=== PATIENT | female | born 1970 | race Hispanic/Latino ===

== ENCOUNTER → 2017-11-30 | Outpatient (REF) | payer BC ==
[2017-11-30 18:06] LABS: APPEARANCE, URINE CLOUDY (CLEAR); BACTERIA, URINE AUTO 2+ (NEGATIVE); BILIRUBIN, URINE AUTO NEGATIVE (NEGATIVE); BLOOD, URINE BLOOD 3+ (NEGATIVE); COLOR, URINE RED (YELLOW); GLUCOSE, URINE (UA) AUTO NEGATIVE (NEGATIVE); KETONE, URINE AUTO NEGATIVE (NEGATIVE); LEUKOCYTE ESTERASE, URINE AUTO 3+ (NEGATIVE); MUCUS, URINE SMALL (NEGATIVE); NITRITE, URINE AUTO NEGATIVE (NEGATIVE); PROTEIN, URINE AUTO 2+ mg/dL (NEGATIVE); RBC, URINE AUTO 132 /HPF (0-3); SPECIFIC GRAVITY URINE AUTO 1.002 (1.002-1.035); SQUAMOUS EPITHELIAL CELL UR AU 1 /HPF (0-6); UROBILINOGEN, URINE AUTO 0.2 mg/dL (0.0-2.0); WBC, URINE AUTO TNTC /HPF (0-3)
== END ==
LOC: M LAB REF 17:23
DX: N39.0 Urinary tract infection, site not specified (principal)
CPT/HCPCS: 81001

== ENCOUNTER 2018-07-05 14:03 | Emergency (ER) | payer OTHER, BC ==
[2018-07-05] MEDS: METHOCARBAMOL 750 MG TAB PO (16:30)
[2018-07-05] MEDS: IBUPROFEN 600 MG TAB PO (16:31)
== END 2018-07-05 19:35 | disposition home or self-care (01) ==
LOC: M ED 14:03
DX: S20.219A Contusion of unspecified front wall of thorax, initial encounter (principal); S60.211A Contusion of right wrist, initial encounter; S60.032A Contusion of left middle finger without damage to nail, initial encounter; V43.52XA Car driver injured in collision with other type car in traffic accident, initial encounter; Y92.9 Unspecified place or not applicable; Y93.9 Activity, unspecified; Y99.9 Unspecified external cause status; M47.812 Spondylosis without myelopathy or radiculopathy, cervical region; M12.88 Other specific arthropathies, not elsewhere classified, other specified site
CPT/HCPCS: 71046

== ENCOUNTER → 2019-02-25 | Outpatient (REF) | payer OTHER, BC ==
[~2019-02-25] MED LIST: FERR325T3 PO; NAPR-837 PO; ROBA500T PO
== END ==
LOC: M SFHCPLAZ 20:20
PROVIDERS: ATTEND Nurse Practitioner Family
DX: R87.615 Unsatisfactory cytologic smear of cervix (principal)

== ENCOUNTER → 2019-02-28 | Outpatient (CLI) | payer BC ==
[2019-02-28 20:09] LABS: BASO % 0.5 % (0.0-1.0); EOS # 0.3 10^3/uL (0.0-0.50); EOS % 3.7 % (0.0-3.0); HEMATOCRIT 25.8 % (36.0-47.0); LYMPH # 3.2 10^3/uL (1.5-4.5); LYMPH % 39.9 % (24.0-44.0); MEAN CORPUSCULAR HEMOGLOBIN 16.1 pg (27.0-33.0); MEAN CORPUSCULAR HGB CONC 26.7 g/dl (32.0-36.5); MEAN CORPUSCULAR VOLUME 60.1 fl (80.0-96.0); MONO # 0.5 10^3/uL (0.0-0.8); MONO % 5.7 % (0.0-5.0); NEUTROPHILS # 3.9 10^3/uL (1.8-7.7); NEUTROPHILS % 49.8 % (36.0-66.0); PLATELET COUNT, AUTOMATED 507 10^3/uL (150-450); RED BLOOD COUNT 4.29 10^6/uL (4.00-5.40); WHITE BLOOD COUNT 7.9 10^3/uL (4.0-10.0)
[2019-02-28 20:19] LABS: HEMOGLOBIN 6.9 g/dl (12.0-15.5)
[2019-02-28 20:32] LABS: ALBUMIN 3.3 GM/DL (3.2-5.2); ALT/SGPT 20 U/L (12-78); BILIRUBIN,TOTAL 0.2 MG/DL (0.2-1.0); BLOOD UREA NITROGEN 8 MG/DL (7-18); CALCIUM LEVEL 8.3 MG/DL (8.5-10.1); CARBON DIOXIDE LEVEL 28 MEQ/L (21-32); CHLORIDE LEVEL 105 MEQ/L (98-107); CHOLESTEROL LEVEL 151 MG/DL (<200); CHOLESTEROL RISK RATIO 3.871 (<5); CREATININE FOR GFR 0.58 MG/DL (0.55-1.30); FREE T4 1.07 NG/DL (0.76-1.46); GLOMERULAR FILTRATION RATE > 60.0 (>58); GLUCOSE, FASTING 95 MG/DL (70-100); HDL CHOLESTEROL 39 MG/DL (>40); LDL CHOLESTEROL 78 MG/DL (<100); NON-HDL-C 112 MG/DL; POTASSIUM SERUM 4.2 MEQ/L (3.5-5.1); SODIUM LEVEL 138 MEQ/L (136-145); TOTAL PROTEIN 7.7 GM/DL (6.4-8.2); TRIGLYCERIDES LEVEL 169 MG/DL (<150)
[2019-02-28 20:47] LABS: HEMOGLOBIN A1c 5.5 %
[2019-03-03 08:21] LABS: H PYLORI QUALITATIVE IgG DETECTED (NEGATIVE)
== END ==
LOC: M WUC 16:23
PROVIDERS: ATTEND Nurse Practitioner Family
DX: K21.9 Gastro-esophageal reflux disease without esophagitis (principal); E55.9 Vitamin D deficiency, unspecified; Z13.228 Encounter for screening for other metabolic disorders

== ENCOUNTER 2019-03-04 11:05 | Inpatient (IN) | payer BC ==
[~2019-03-04] VITALS: Ht 160 cm; Wt 90.4 kg
[~2019-03-04 11:05] MED LIST changes: -FERR325T3 PO
[2019-03-04] MEDS ORDERED: NS 1,000 ML IV SCH (11:12)
[2019-03-04 12:03] VITALS: BP 124/70
[2019-03-04 12:33] LABS: INR 0.99; PROTHROMBIN TIME 13.2 SECONDS (12.1-14.4)
[2019-03-04 12:34] LABS: PARTIAL THROMBOPLASTIN TIME 26.8 SECONDS (25.4-37.6)
[2019-03-04 12:35] LABS: HEMATOCRIT 27.5 % (36.0-47.0); HEMOGLOBIN 7.5 g/dl (12.0-15.5); MEAN CORPUSCULAR HEMOGLOBIN 16.4 pg (27.0-33.0); MEAN CORPUSCULAR HGB CONC 27.3 g/dl (32.0-36.5); MEAN CORPUSCULAR VOLUME 60.2 fl (80.0-96.0); PLATELET COUNT, AUTOMATED 583 10^3/uL (150-450); RED BLOOD COUNT 4.57 10^6/uL (4.00-5.40); WHITE BLOOD COUNT 7.9 10^3/uL (4.0-10.0)
[2019-03-04 14:00] VITALS: BP 104/69
[2019-03-04] MEDS ORDERED: ACETAMINOPHEN 500 MG TAB PO PRN (18:15)
[2019-03-04 22:00] VITALS: BP 103/62
[2019-03-05 06:00] VITALS: BP 127/70
[2019-03-05 06:39] LABS: BASO # 0.1 10^3/uL (0.0-0.2); EOS # 0.3 10^3/uL (0.0-0.50); EOS % 3.6 % (0.0-3.0); HEMATOCRIT 34.1 % (36.0-47.0); LYMPH # 3.3 10^3/uL (1.5-4.5); LYMPH % 45.3 % (24.0-44.0); MEAN CORPUSCULAR HEMOGLOBIN 19.2 pg (27.0-33.0); MEAN CORPUSCULAR HGB CONC 28.7 g/dl (32.0-36.5); MEAN CORPUSCULAR VOLUME 66.7 fl (80.0-96.0); MONO # 0.5 10^3/uL (0.0-0.8); MONO % 6.3 % (0.0-5.0); NEUTROPHILS # 3.2 10^3/uL (1.8-7.7); NEUTROPHILS % 43.1 % (36.0-66.0); PLATELET COUNT, AUTOMATED 519 10^3/uL (150-450); RED BLOOD COUNT 5.11 10^6/uL (4.00-5.40); WHITE BLOOD COUNT 7.3 10^3/uL (4.0-10.0)
[2019-03-05 06:40] LABS: HEMOGLOBIN 9.8 g/dl (12.0-15.5)
[2019-03-05] MEDS ORDERED: FERR325T3 PO (07:56)
--- NOTE | 2019-03-05 08:35 | DSES ---
DATE OF ADMISSION: 03/04/2019 DATE OF DISCHARGE: PRINCIPAL DIAGNOSES: Severe iron deficiency anemia secondary to menometrorrhagia. SECONDARY DIAGNOSIS: Iron deficiency anemia. HISTORY: Sonia Clark was admitted from the office for severe anemia. She had outpatient laboratories done and had a hemoglobin of 6.9 with microcytic indices. She has been having heavy menstrual blood loss recently, as noted in her admission history and physical. HOSPITAL COURSE: She was admitted to a medical bed. She was received 2 units of packed red blood cells. Admission laboratories showed a reticulocyte hemoglobin equivalent at 15.3, consistent with severe iron deficiency. Hemoglobin improved to 9.8 after transfusion. Today she feels well with no shortness of breath, chest pain, or dizziness. She feels ready to go home. She is not having active bleeding. PHYSICAL EXAMINATION: Vital signs stable. LUNGS: Clear. HEART: Regular rhythm. ABDOMEN: Soft, nontender. LABORATORIES: White count 7.3, hemoglobin 9.8, platelets 519. B12 was over 2000. PT and PTT normal. Pelvic ultrasound was ordered, but there is not report back yet. DISPOSITION: I plan to discharge her after we get the pelvic ultrasound report called to me. It was done yesterday but it is 8:00 o'clock the next morning and there is no report yet. Her activity is as tolerated. Diet as tolerated. Ferrous sulfate 325 mg twice a day prescribed upon discharge. She will need an outpatient referral to gynecology.
--- NOTE | 2019-03-05 13:31 | REP ---
PELVIC ULTRASOUND: Real-time sonographic evaluation of the pelvis is performed utilizing transabdominal and endovaginal technique. Bladder measures 15.7 x 8.2 x 13.1 cm. Uterus measures 11.9 x 5.2 x 9.1 cm. There are multiple uterine fibroids present. The two largest are in the fundus in the midline demonstrating calcification diffusely and measuring 2.6 x 2.2 x 2.4 cm, and also in the left lower uterine segment 5.6 x 3.7 x 3.6 cm. Endometrial thickness is 11 mm. No endometrial fluid collection is seen. The ovaries are normal in size and echotexture, right ovary measuring 3.3 x 2.0 x 2.7 cm and left ovary 3.0 x 2.0 x 2.8 cm. There is no adnexal mass or free fluid. IMPRESSION: Fibroid uterus as above. Endometrial thickness 11 mm. Electronically Signed by German Barajas MD 03/06/2019 11:14 A
== END 2019-03-05 14:55 | disposition home or self-care (01) | DRG 663 ==
LOC: M MS5PR 11:42
PROVIDERS: ADMIT Surgery Vascular Surgery; ATTEND Family Medicine
PROC: 30233N1 Transfusion of Nonautologous Red Blood Cells into Peripheral Vein, Percutaneous Approach (ICD-10-PCS; principal; 2019-03-04)
DX: D50.9 Iron deficiency anemia, unspecified (principal); N92.0 Excessive and frequent menstruation with regular cycle

== ENCOUNTER → 2019-05-02 | Outpatient (CLI) | payer BC ==
[~2019-05-02] MED LIST changes: +FERR325T3 PO
[2019-05-02 20:28] LABS: HEMATOCRIT 35.1 % (36.0-47.0); HEMOGLOBIN 10.6 g/dl (12.0-15.5); MEAN CORPUSCULAR HEMOGLOBIN 24.7 pg (27.0-33.0); MEAN CORPUSCULAR HGB CONC 30.2 g/dl (32.0-36.5); MEAN CORPUSCULAR VOLUME 81.8 fl (80.0-96.0); PLATELET COUNT, AUTOMATED 375 10^3/uL (150-450); RED BLOOD COUNT 4.29 10^6/uL (4.00-5.40); WHITE BLOOD COUNT 8.5 10^3/uL (4.0-10.0)
[2019-05-02 20:44] LABS: PERCENT SATURATION 9.6 % (13.2-45.0)
== END ==
LOC: M WUC 16:36
PROVIDERS: ATTEND Nurse Practitioner Family
DX: D64.9 Anemia, unspecified (principal); R76.8 Other specified abnormal immunological findings in serum

== ENCOUNTER → 2019-07-18 | Outpatient (CLI) | payer BC ==
[2019-07-18 20:24] LABS: HEMATOCRIT 35.4 % (36.0-47.0); HEMOGLOBIN 11.2 g/dl (12.0-15.5); MEAN CORPUSCULAR HEMOGLOBIN 27.8 pg (27.0-33.0); MEAN CORPUSCULAR HGB CONC 31.6 g/dl (32.0-36.5); MEAN CORPUSCULAR VOLUME 87.8 fl (80.0-96.0); PLATELET COUNT, AUTOMATED 401 10^3/uL (150-450); RED BLOOD COUNT 4.03 10^6/uL (4.00-5.40); WHITE BLOOD COUNT 9.4 10^3/uL (4.0-10.0)
== END ==
LOC: M WUC 17:06
PROVIDERS: ATTEND Family Medicine
DX: D50.9 Iron deficiency anemia, unspecified (principal); R76.8 Other specified abnormal immunological findings in serum

== ENCOUNTER → 2019-11-11 | Outpatient (CLI) | payer BC ==
--- NOTE | 2019-11-11 16:29 | REPMRS ---
Patient History The patient states she has not had a clinical breast exam in over a year. Family history of breast cancer at age 45 in sister. 3D TOMOSYNTHESIS WAS PERFORMED. [facility] lifetime risk for breast cancer is 17.5%. Digital Woman Screen Mammo: November 11, 2019 - Exam #: [id number] Bilateral CC and MLO view(s) were taken. Technologist: Sheial Garcia, Technologist No prior studies available for comparison. FINDINGS: The breast tissue is heterogeneously dense. This may lower the sensitivity of mammography. There is no evidence of cancer on this mammogram. Scattered lymph nodes are seen in the axilla. Assessment: BI-RADS/ACR category 2 mammogram. Benign Findings. Recommendation Routine screening mammogram of both breasts in 1 year (for women over age 40). This mammogram was interpreted with the aid of an FDA-approved computer-aided dectection system. Electronically Signed By: German Barajas MD 11/11/19 1315
== END ==
LOC: M WHC 13:35
PROVIDERS: ATTEND Nurse Practitioner Family
DX: Z12.31 Encounter for screening mammogram for malignant neoplasm of breast (principal); Z80.3 Family history of malignant neoplasm of breast

== ENCOUNTER → 2020-11-12 | Outpatient (REF) | payer BC | LOC: M SFHCPLAZ 16:59 | PROVIDERS: ATTEND Nurse Practitioner Family | DX: Z01.419 Encounter for gynecological examination (general) (routine) without abnormal findings (principal) ==

== ENCOUNTER → 2020-11-26 | Outpatient (CLI) | payer BC ==
--- NOTE | 2020-11-26 15:26 | REPMRS ---
Patient History The patient states she had a clinical breast exam in 11/2020. Family history of breast cancer at age 45 in sister. No Hormone Replacement Therapy Digital Woman Screen Mammo: November 26, 2020 - Exam #: [id number] Bilateral CC and MLO view(s) were taken. Technologist: Janny Swenson, Technologist Prior study comparison: November 11, 2019, bilateral digital woman screen mammo performed at [facility] and [facility]. FINDINGS: There are scattered fibroglandular densities. The Volpara volumetric breast density category is:B. There has been no change in the appearance of the mammogram from the prior studies. There is a mild amount of scattered fibroglandular density which is fairly symmetric. There is no interval development of dominant mass, architectural distortion, or grouped microcalcification suggestive of malignancy. 3-D tomosynthesis shows no additional findings. Assessment: BI-RADS/ACR category 1 mammogram. Negative Mammogram. Recommendation Routine screening mammogram of both breasts in 1 year (for women over age 40). This patient's [facility] Lifetime Breast Cancer Risk is estimated at 17.2 %. This mammogram was interpreted with the aid of an FDA-approved computer-aided dectection system. Electronically Signed By: Alejo Archer MD 11/26/20 4495
== END ==
LOC: M WHC 14:31
PROVIDERS: ATTEND Nurse Practitioner Family
DX: Z12.31 Encounter for screening mammogram for malignant neoplasm of breast (principal); Z80.3 Family history of malignant neoplasm of breast

== ENCOUNTER → 2021-04-12 | Outpatient (CLI) | payer BC ==
--- NOTE | 2021-04-12 14:46 | REP ---
INDICATION: PAIN COMPARISON: None. TECHNIQUE: AP, lateral, flexion/extension, bilateral oblique, and open-mouth views. FINDINGS: Alignment and lordosis is maintained. There is no evidence for acute fracture / compression injury or subluxation. Mild age-related changes. Oblique views demonstrate patent neural foramen. Open mouth view demonstrates normal C1-C2 articulation and odontoid process. IMPRESSION: Mild age-related changes. <Electronically signed by Angel Gilbert > 04/12/21 7957
[2021-04-12 16:25] LABS: BASO # 0.1 10^3/uL (0.0-0.2); BASO % 0.9 % (0.0-1.0); EOS # 0.2 10^3/uL (0.0-0.5); EOS % 2.2 % (0.0-3.0); HEMATOCRIT 30.6 % (36.0-47.0); HEMOGLOBIN 9.2 g/dl (12.0-15.5); LYMPH # 2.1 10^3/uL (1.5-5.0); MEAN CORPUSCULAR HEMOGLOBIN 23.4 pg (27.0-33.0); MEAN CORPUSCULAR HGB CONC 30.1 g/dl (32.0-36.5); MEAN CORPUSCULAR VOLUME 77.9 fl (80.0-96.0); MONO # 0.6 10^3/uL (0.0-0.8); MONO % 7.3 % (2.0-8.0); NEUTROPHILS # 4.6 10^3/uL (1.5-8.5); NEUTROPHILS % 60.8 % (36.0-66.0); PLATELET COUNT, AUTOMATED 446 10^3/uL (150-450); RED BLOOD COUNT 3.93 10^6/uL (4.00-5.40); WHITE BLOOD COUNT 7.6 10^3/uL (4.0-10.0)
[2021-04-12 16:57] LABS: ALBUMIN 3.6 GM/DL (3.2-5.2); ALT/SGPT 24 U/L (12-78); BILIRUBIN,TOTAL 0.3 MG/DL (0.2-1.0); BLOOD UREA NITROGEN 16 MG/DL (7-18); CALCIUM LEVEL 8.6 MG/DL (8.5-10.1); CARBON DIOXIDE LEVEL 29 MEQ/L (21-32); CHLORIDE LEVEL 104 MEQ/L (98-107); CHOLESTEROL LEVEL 248 MG/DL (<200); CHOLESTEROL RISK RATIO 4.679 (<5); CREATININE FOR GFR 0.57 MG/DL (0.55-1.30); FERRITIN 5 NG/ML (8-252); GLOMERULAR FILTRATION RATE > 60.0 (>58); GLUCOSE, FASTING 96 MG/DL (70-100); HDL CHOLESTEROL 53 MG/DL (>40); LDL CHOLESTEROL 150 MG/DL (<100); NON-HDL-C 195 MG/DL; POTASSIUM SERUM 3.8 MEQ/L (3.5-5.1); SODIUM LEVEL 137 MEQ/L (136-145); TOTAL PROTEIN 7.4 GM/DL (6.4-8.2); TRIGLYCERIDES LEVEL 226 MG/DL (<150)
[2021-04-12 18:39] LABS: TOTAL 25(OH) VITAMIN D 18.5 NG/ML (30.0-100.0)
[2021-04-12 18:50] LABS: HEMOGLOBIN A1c 5.3 %
== END ==
LOC: M WUC 13:46
PROVIDERS: ATTEND Nurse Practitioner Family
DX: D50.9 Iron deficiency anemia, unspecified (principal); E55.9 Vitamin D deficiency, unspecified; E78.5 Hyperlipidemia, unspecified; M54.2 Cervicalgia

== ENCOUNTER → 2021-05-24 | Outpatient (CLI) | payer BC ==
[2021-05-24 19:55] LABS: BASO # 0.1 10^3/uL (0.0-0.2); BASO % 0.8 % (0.0-1.0); EOS # 0.4 10^3/uL (0.0-0.5); EOS % 4.3 % (0.0-3.0); HEMATOCRIT 32.1 % (36.0-47.0); HEMOGLOBIN 9.3 g/dl (12.0-15.5); LYMPH # 2.4 10^3/uL (1.5-5.0); LYMPH % 28.6 % (24.0-44.0); MEAN CORPUSCULAR HEMOGLOBIN 20.9 pg (27.0-33.0); MEAN CORPUSCULAR VOLUME 72.1 fl (80.0-96.0); MONO # 0.6 10^3/uL (0.0-0.8); MONO % 6.9 % (2.0-8.0); NEUTROPHILS # 4.9 10^3/uL (1.5-8.5); NEUTROPHILS % 58.9 % (36.0-66.0); PLATELET COUNT, AUTOMATED 522 10^3/uL (150-450); RED BLOOD COUNT 4.45 10^6/uL (4.00-5.40); WHITE BLOOD COUNT 8.3 10^3/uL (4.0-10.0)
[2021-05-24 20:17] LABS: ERYTHROCYTE SEDIMENTATION RATE 35 mm/hr (0-20)
[2021-05-24 20:25] LABS: C REACTIVE PROTEIN QUANTITATIV < 0.30 MG/DL (0.00-0.30); RHEUMATOID FACTOR QUANT < 10.0 IU/ML (<15.0)
== END ==
LOC: M WUC 15:24
PROVIDERS: ATTEND Nurse Practitioner Family
DX: M79.89 Other specified soft tissue disorders (principal)

== ENCOUNTER → 2021-06-03 | Outpatient (CLI) | payer BC ==
--- NOTE | 2021-06-03 17:09 | REP ---
INDICATION: UTERINE LEIOMYOMA. COMPARISON: 03/04/2019. TECHNIQUE: Transabdominal scanning performed. FINDINGS: Uterine dimensions are 13.2 x 7.5 x 9.7 cm. Echotexture is diffusely heterogeneous and there are multiple fibroids. Endometrial echo is 17 mm in AP dimension and centrally placed. A calcified posterior uterine fibroid is unchanged, measuring 2.6 x 2.1 x 2.2 cm. A posterior noncalcified fibroid measures 5.7 x 4.9 x 4.8 cm and another measures 5.8 x 4.9 x 4.9 cm. The bladder measures 14.6 x 6.5 x 9.7cm. The right ovary has dimensions of 3.2 x 2.4 x 3.9 cm. The left ovary dimensions are 4.3 x 3.1 x 3.8 cm. There is a 2.5 cm dominant follicle in the left ovary. There is no adnexal mass identified. No free fluid is seen in the cul-de-sac. IMPRESSION: Fibroid uterus appears similar to the prior study. <Electronically signed by German Barajas > 06/03/21 3458
== END ==
LOC: M WHC 14:35
PROVIDERS: ATTEND Obstetrics & Gynecology
DX: D25.9 Leiomyoma of uterus, unspecified (principal)

== ENCOUNTER → 2021-07-12 | Outpatient (REF) | payer BC | LOC: M SFHCWAGY 17:43 | PROVIDERS: ATTEND Obstetrics & Gynecology | DX: N93.9 Abnormal uterine and vaginal bleeding, unspecified (principal) ==

== ENCOUNTER → 2021-09-12 | Outpatient (CLI) | payer BC ==
[~2021-09-12] MED LIST changes: +COLA100C5 PO; +ERGO500029; +IBUP80TA PO; +PERCOCET PO; +VITMTA PO
== END ==
LOC: M LABSMTC 09:20
PROVIDERS: ATTEND Anesthesiology
DX: Z01.812 Encounter for preprocedural laboratory examination (principal); Z20.822 Contact with and (suspected) exposure to COVID-19

== ENCOUNTER 2021-09-16 06:08 | Day surgery (SDC) | payer BC ==
[2021-09-16] VITALS (8 sets, daily range): BP systolic 115–137; BP diastolic 64–80
[~2021-09-16] VITALS: Ht 157.5 cm; Wt 72.1 kg
[~2021-09-16 06:08] MED LIST changes: -COLA100C5 PO; -IBUP80TA PO; +LR 1,000 ML IV ONE; -PERCOCET PO; +ceFAZolin SOD 2 GM in IV 1 EA IV ONE
--- OUTSIDE RECORDS SUMMARY | 2021-09-16 06:11 | CCD | Continuity of Care Document ---
Author Author Sonia GILLILAND MD Organization Unknown Address [address] [address] Phone [phone] Care Team Providers Care Electrician Marine Name Role Phone Altagracia Smith AUTM [phone] Problems Description No Information Available Social History Type Date Description Comments Sex Unknown ETOH Use Denies alcohol use Tobacco Use Start: Unknown Patient has never smoked Allergies and adverse reactions Description No Known Drug Allergies Medications Active Medications SIG Qnty Indications Ordering Provide r Date Calcium + D 500-1000 -35rh-Fdg-fce Chewtabs 1 by mouth every day Unknown /0 000 Vitamin D (Cholecalciferol) 50mcg (2000 Ut) Capsules take 5000 iu daily Unknown 0 Iron 28mg Tablets 1 tab by mouth once daily. it is 0.6 mg's daily. Unknown 00 Immunizations Description No Information Available Vital Signs Date Vital Result Comment 07/13/2021 3:38pm Body Temperature 97.3 F Height 61 inches 5'1" Weight 156.12 lb BMI (Body Mass Index) 29.5 kg/m2 Results Description No Information Available Procedures Date Code Description Status 08/29/2021 45710 Office/Outpatient Established Mo d MDM 30-39 Min Completed 08/22/2021 40385 Physical Therapy Eval - Low Comp lexity Completed 08/17/2021 78976 Consultation Outpatient Level 4 Completed 08/17/2021 03063 Nerve Conduction 13+ Studies Com pleted 08/17/2021 20997 Needle Electromyography,Complete Five Or More Muscles Studied Completed 07/13/2021 02182 Office/Outpatient New Moderate M DM 45-59 Minutes Completed Medical Devices Description No Information Available Encounters Type Date Location Provider Dx Diagnosis Office Visit 08/29/2021 2:30p [place] Mark Gilliland MD G56.03 Carpal tunnel syndrome, bilateral upper limbs M50.322 Other cervical disc degenera tion at C5-C6 level M47.892 Other spondylosis, cervical region M54.12 Radiculopathy, cervical gardenia on M54.2 Cervicalgia Office Visit 08/17/2021 3:30p [place] Matty Whitehead MD G56.03 Carpal tunnel syndrome, bilateral upper limbs M50.322 Other cervical disc degenera tion at C5-C6 level M47.892 Other spondylosis, cervical region M54.12 Radiculopathy, cervical gardenia on Office Visit 07/13/2021 3:15p [place] Mark Gilliland MD M54.2 Cervicalgia R20.0 Anesthesia of skin Assessments Date Code Description Provider 08/29/2021 G56.03 Carpal tunnel syndrome, bilatera l upper limbs Mark Gilliland MD 08/29/2021 M50.322 Other cervical disc degeneration at C5-C6 level Mark Gilliland MD 08/29/2021 M47.892 Other spondylosis, cervical gardenia on Mark Gilliland MD 08/29/2021 M54.12 Radiculopathy, cervical region B rakesh Gilliland MD 08/29/2021 M54.2 Cervicalgia Mark Gilliland MD 08/22/2021 M54.2 Cervicalgia Randall Obregon, PT, DPT 08/17/2021 G56.03 Carpal tunnel syndrome, bilatera l upper limbs Matty Whitehead MD 08/17/2021 M50.322 Other cervical disc degeneration at C5-C6 level Matty Whitehead MD 08/17/2021 M47.892 Other spondylosis, cervical gardenia on Matty Whitehead MD 08/17/2021 M54.12 Radiculopathy, cervical region H conrado Whitehead MD 07/13/2021 M54.2 Cervicalgia Mark Gilliland MD 07/13/2021 R20.0 Anesthesia of skin Mark boyce MD Plan of Treatment Future Appointment(s):* 09/02/2021 3:30 pm - Rozina Samano P.T.A. at Physical Therapy * 08/30/2021 3:30 pm - Rozina Samano P.T.A. at Physical Therapy 08/29/2021 - Mark Gilliland MD* G56.03 Carpal tunnel syndrome, bilateral upper limbs* New Orders:* Surgery, Ordered: 08/29/21 * Follow up:* Post Op * M50.322 Other cervical disc degeneration at C5-C6 level * M47.892 Other spondylosis, cervical region * M54.12 Radiculopathy, cervical region * M54.2 Cervicalgia Functional Status Description No Information Available Mental Status Description No Information Available Referrals Refer to Dr Reason for Referral Status Appt Date Mark Gilliland MD DME PER EVON AT B/S([facility] ) NO AUTH REQUIRED FOR RT AND LEFT APOLLO W[employer]ST BRACE'S (L3908) AND THEY HAVE A $500 DEDUCTIBLE AND OUT OF POCKET OF $3,000 COVERED AT 80% AFTER DEDUCTIBLE TO [facility] NT CALL REF #[id number] Created [address] [place] [address] [phone] Mark Gilliland MD EMG PER JAB[facility] AT NO AU TH REQUIRED AND THEY HAVE A $[address] [place] THEY MEET THERE OUT OF POCKET OF $3,000 TO SCHEDULING NT ALL REF # [id number] Created [address] [place] [address] [phone] Mark Gilliland MD 30 combined PT visits per ca l year - 0 used as of this date $0.00 copay deductible has been met call reference # [id number] Spoke with Carmen painter Created [address] [place] [address] [phone]
--- OUTSIDE RECORDS SUMMARY | 2021-09-16 06:11 | CCD | Continuity of Care Document ---
Author Author Sonia GILLILAND MD Organization Unknown Address [address] [facility] [address] [place] [address] Phone [phone] Care Team Providers Care Third Grade Teacher Name Role Phone Altagracia SmithP AUTM [phone] Problems Description No Information Available Social History Type Date Description Comments Sex Unknown ETOH Use Denies alcohol use Tobacco Use Start: Unknown Patient has never smoked Allergies and adverse reactions Description No Known Drug Allergies Medications Active Medications SIG Qnty Indications Ordering Provide r Date Calcium + D 500-1000 -44al-Wjb-nlq Chewtabs 1 by mouth every day Unknown [...] BMI (Body Mass Index) 29.5 kg/m2 Results Test Acquired Date Facility Test Result H/L Range Note Order 08/30/2021 [facility] [address] [facility] [address] [place] [address] Surgery <pending> Procedures Date Code Description Status 08/29/2021 66169 Office/Outpatient Established Mo d MDM 30-39 Min Completed 08/22/2021 60222 Physical Therapy Eval - Low Comp lexity Completed 08/17/2021 07156 Office/Outpatient New Moderate M DM 45-59 Minutes Completed 08/17/2021 66015 Nerve Conduction 13+ Studies Com pleted 08/17/2021 38408 Needle Electromyography,Complete Five Or More Muscles Studied Completed 07/13/2021 79342 Office/Outpatient New Moderate M DM 45-59 Minutes Completed Medical Devices Description No Information Available Encounters Type Date Location Provider Dx Diagnosis Office Visit 08/29/2021 2:30p [place] Gillil[place] MD G56.03 Carpal tunnel syndrome, bilateral upper limbs Office Visit 08/17/2021 3:30p [place] Matty Whitehead MD G56.03 Carpal tunnel syndrome, bilateral upper limbs M50.322 Other cervical disc degenera tion at C5-C6 level M47.892 Other spondylosis, cervical region M54.12 Radiculopathy, cervical gardenia on Office Visit 07/13/2021 3:15p [place] Mark Gilliland MD M54.2 Cervicalgia R20.0 Anesthesia of skin Assessments Date Code Description Provider 08/29/2021 G56.03 Carpal tunnel syndrome, bilatera l upper limbs Mark Gilliland MD 08/22/2021 M54.2 Cervicalgia Randall Obregon, PT, DPT 08/22/2021 R20.0 Anesthesia of skin Randall levi, PT, DPT 08/17/2021 G56.03 Carpal tunnel syndrome, bilatera l upper limbs Matty Whitehead MD 08/17/2021 M50.322 Other cervical disc degeneration at C5-C6 level Matty Whitehead MD 08/17/2021 M47.892 Other spondylosis, cervical gardenia on Matty Whitehead MD 08/17/2021 M54.12 Radiculopathy, cervical region H conrado Whitehead MD 07/13/2021 M54.2 Cervicalgia Mark Gilliland MD 07/13/2021 R20.0 Anesthesia of skin Mark boyce MD Plan of Treatment 08/29/2021 - Mark Gilliland MD* G56.03 Carpal tunnel syndrome, bilateral upper limbs* Follow up:* Post Op Functional Status Description No Information Available Mental Status Description No Information Available Referrals Refer to Dr Reason for Referral Status Appt Date SURGERY PER JOSE AT [facility]( [facility] ) NO AUTH REQUIRED FOR RT ENDO CTR(33368) TO SURGERY NT CALL REF #[id number] Created Mark Gilliland MD DME PER EVON AT B/S([facility] ) NO AUTH REQUIRED FOR RT AND LEFT APOLLO W[employer] BRACE'S (L3908) AND THEY HAVE A $500 DEDUCTIBLE AND OUT OF POCKET OF $3,000 COVERED AT 80% AFTER DEDUCTIBLE TO [facility] NT CALL REF #[id number] Created [facility] [place] [address] [phone] Mark Gilliland MD EMG PER JAB[facility] AT NO AU TH REQUIRED AND THEY HAVE A $[address] [place] THEY MEET THERE OUT OF POCKET OF $3,000 TO SCHEDULING NT ALL REF # [id number] Created [facility] [place] [address] [phone] Mark Gilliland MD 30 combined PT visits per ca l year - 0 used as of this date $0.00 copay deductible has been met call reference # [id number] Spoke with Carmen painter Created [facility] [place] [address] [phone]
--- OUTSIDE RECORDS SUMMARY | 2021-09-16 06:11 | CCD | Continuity of Care Document ---
Author Author Sonia COOK PT DPT Organization Unknown Address [facility] [address] Phone [phone] Care Team Providers Care Fabricator Foam Rubber Name Role Phone Altagracia Smith MARKETING DIRECTOR ASSISTED LIVING AUTM [phone] Problems Description No Information Available Social History Type Date Description Comments Sex Unknown ETOH Use Denies alcohol use Tobacco Use Start: Unknown Patient has never smoked Allergies and adverse reactions Description No Known Drug Allergies Medications Active Medications SIG Qnty Indications Ordering Provide r Date Calcium + D 500-1000 -03or-Mck-gjn Chewtabs 1 by mouth every day Unknown /0 000 Vitamin D (Cholecalciferol) 50mcg (1999 Ut) Capsules take 5000 iu daily Unknown [...] Information Available Procedures Date Code Description Status 08/17/2021 97195 Consultation Outpatient Level 4 Completed 08/17/2021 17693 Nerve Conduction 13+ Studies Com pleted 08/17/2021 08105 Needle Electromyography,Complete Five Or More Muscles Studied Completed 07/13/2021 11408 Office/Outpatient New Moderate M DM 45-59 Minutes Completed Medical Devices Description No Information Available Encounters Type Date Location Provider Dx Diagnosis Office Visit 08/17/2021 3:30p [place] Matty Whitehead MD G56.03 Carpal tunnel syndrome, bilateral upper limbs M50.322 Other cervical disc degenera tion at C5-C6 level M47.892 Other spondylosis, cervical region M54.12 Radiculopathy, cervical gardenia on Office Visit 07/13/2021 3:15p [place] Mark Aguilar MD M54.2 Cervicalgia R20.0 Anesthesia of skin Assessments Date Code Description Provider 08/17/2021 G56.03 Carpal tunnel syndrome, bilatera l upper limbs Matty Whitehead MD 08/17/2021 M50.322 Other cervical disc degeneration at C5-C6 level Matty Whitehead MD 08/17/2021 M47.892 Other spondylosis, cervical gardenia on Matty Whitehead MD 08/17/2021 M54.12 Radiculopathy, cervical region H conrado Whiethead MD 07/13/2021 M54.2 Cervicalgia Mark Aguilar MD 07/13/2021 R20.0 Anesthesia of skin Mark boyce MD Plan of Treatment Future Appointment(s):* 09/02/2021 3:30 pm - Rozina Samano P.TMarilynn at Physical Therapy * 08/30/2021 3:30 pm - Rozina Avery.T.Dheeraj at Physical Therapy * 08/29/2021 2:30 pm - Mark Aguilar MD at [place] Functional Status Description No Information Available Mental Status Description No Information Available Referrals Refer to Reason for Referral Status Appt Date Mark Aguilar MD EMG PER [facility] AT NO AU TH REQUIRED AND THEY HAVE A $[address] [place] THEY MEET THERE OUT OF POCKET OF $3,000 TO SCHEDULING NT ALL REF # [id number] Created [address] [place] [address], [place] [address] [phone] Mark Aguilar MD 30 combined PT visits per ca l year - 0 used as of this date $0.00 copay deductible has been met call reference # [id number] Spoke with Carmen painter Created [address] [place] [address], [place] [address] [phone]
--- OUTSIDE RECORDS SUMMARY | 2021-09-16 06:11 | CCD | Continuity of Care Document ---
Author Author Sonia COOK PT DPT Organization Unknown Address [address] [facility] [address] [place] [address] Phone [phone] Care Team Providers Care Drafter Seismograph Name Role Phone Altagracia Smith ROLL HAULER AUTM [phone] Problems Description No Information Available Social History Type Date Description Comments Sex Unknown ETOH Use Denies alcohol use Tobacco Use Start: Unknown Patient has never smoked Allergies and adverse reactions Description No Known Drug Allergies Medications Active Medications SIG Qnty Indications Ordering Provide r Date Calcium + D 500-1000 -81nc-Bht-mkj Chewtabs 1 by mouth every day Unknown [...] Test Result H/L Range Note Order 08/30/2021 [facility] [address] [facility] [address] [place] [address] Surgery <pending> Procedures Date Code Description Status 08/29/2021 81236 Office/Outpatient Established Mo d MDM 30-39 Min Completed 08/22/2021 74053 Physical Therapy Eval - Low Comp lexity Completed 08/17/2021 66146 Office/Outpatient New Moderate M DM 45-59 Minutes Completed 08/17/2021 59534 Nerve Conduction 13+ Studies Com pleted 08/17/2021 34525 Needle Electromyography,Complete Five Or More Muscles Studied Completed 07/13/2021 46993 Office/Outpatient New Moderate M DM 45-59 Minutes Completed Medical Devices Description No Information Available Encounters Type Date Location Provider Dx Diagnosis Office Visit 08/29/2021 2:30p [place] Mark Aguilar MD G56.03 Carpal tunnel syndrome, bilateral upper limbs M50.322 Other cervical disc degenera tion at C5-C6 level M47.892 Other spondylosis, cervical region M54.12 Radiculopathy, cervical gardenia on M54.2 Cervicalgia Office Visit 08/17/2021 3:30p [place] Matty Whitehead MD G56.03 Carpal tunnel syndrome, bilateral upper limbs M50.322 Other cervical disc degenera tion at C5-C6 level M47.892 Other spondylosis, cervical region M54.12 Radiculopathy, cervical gardenia on Office Visit 07/13/2021 3:15p [place] Mark Aguilar MD M54.2 Cervicalgia R20.0 Anesthesia of skin Assessments Date Code Description Provider 08/29/2021 G56.03 Carpal tunnel syndrome, bilatera l upper limbs Mark Aguilar MD 08/29/2021 M50.322 Other cervical disc degeneration at C5-C6 level Mark Aguilar MD 08/29/2021 M47.892 Other spondylosis, cervical gardenia on Mark Aguilar MD 08/29/2021 M54.12 Radiculopathy, cervical region B rakesh Aguilar MD 08/29/2021 M54.2 Cervicalgia Mark Aguilar MD 08/22/2021 M54.2 Cervicalgia Randall Cook, PT, DPT 08/22/2021 R20.0 Anesthesia of skin Randall levi, PT, DPT 08/17/2021 G56.03 Carpal tunnel syndrome, bilatera l upper limbs Matty Whitehead MD 08/17/2021 M50.322 Other cervical disc degeneration at C5-C6 level Matty Whitehead MD 08/17/2021 M47.892 Other spondylosis, cervical gardenia on Matty Whitehead MD 08/17/2021 M54.12 Radiculopathy, cervical region H conrado Whitehead MD 07/13/2021 M54.2 Cervicalgia Mark Aguilar MD 07/13/2021 R20.0 Anesthesia of skin Mark boyce MD Plan of Treatment 08/29/2021 - Mark Aguilar MD* G56.03 Carpal tunnel syndrome, bilateral upper limbs* Follow up:* Post Op * M50.322 Other cervical disc degeneration at C5-C6 level * M47.892 Other spondylosis, cervical region * M54.12 Radiculopathy, cervical region * M54.2 Cervicalgia Functional Status Description No Information Available Mental Status Description No Information Available Referrals Refer to Dr Reason for Referral Status Appt Date SURGERY PER JOSE AT /S( [facility] ) NO AUTH REQUIRED FOR RT ENDO CTR(58688) TO SURGERY NT CALL REF #[id number] Created Mark Aguilar MD DME PER EVON AT /S([facility] ) NO AUTH REQUIRED FOR RT AND LEFT APOLLO W[employer]ACE'S (L3908) AND THEY HAVE A $500 DEDUCTIBLE AND OUT OF POCKET OF $3,000 COVERED AT 80% AFTER DEDUCTIBLE TO [facility] NT CALL REF #[id number] Created [address] [place] [address], [place] [address] [phone] Mark Aguilar MD EMG PER [facility] TH REQUIRED AND THEY HAVE A $[address] LAMAR THEY MEET THERE OUT OF POCKET OF $3,000 TO SCHEDULING NT ALL REF # [id number] Created [address] [place] [address], [place] [address] [phone] Mark Aguilar MD 30 combined PT visits per ca l year - 0 used as of this date $0.00 copay deductible has been met call reference # [id number] Spoke with Carmen painter Created [address] [place] [address] [phone]
--- OUTSIDE RECORDS SUMMARY | 2021-09-16 06:11 | CCD ---
Author Author [facility] Organization [facility] Address Unknown Phone Unavailable Care Team Providers Care Gis Professor Name Role Phone Jeff Huber Unavailable PROBLEMS Type Condition ICD9-CM Code OOI07-PB Code Onset Dates Condition S tatus W/U Status Risk SNOMED Code Notes Problem Hyperlipidemia E78.5 Active confirmed 61057 004 Problem Abnormal uterine bleeding N93.9 Active confirmed 10274686311057 Problem Vitamin D deficiency, unspecified E55.9 Active con firmed 22407168 Problem Gastroesophageal reflux K21.9 Active confirmed 414011792 Problem Fe deficiency anemia D50.9 Active confirmed 40444532 ALLERGIES No Known Allergies ENCOUNTERS from 1972 to 2021-09-06 Encounter Location Date Provider Diagnosis [facility] [address] [place] [address] [place] [address] Aug, Jeff Huber Leiomyoma of uterus D25.9 ; Pelvic pain R10.2 and Abnormal uterine bleeding N93.9 IMMUNIZATIONS No Information SOCIAL HISTORY Tobacco Use: Social History Observation Description Date Details (start date - stop date) Never Smoker Sex Assigned At : Social History Observation Description Sex Assigned At Unknown Education: Question Answer Notes Level of Education: Not finished High School 6th grade Audit Question Answer Notes Total Score: 1 Interpretation: Alcohol Education Language: Question Answer Notes Languages spoken: Serbian Maori Jainism: Question Answer Notes Jainism 21 Religion Drug and Alcohol Question Answer Notes Total Score: 0 Interpretation: No problems reported Alcohol Screening: Question Answer Notes Did you have a drink containing alcohol in the past year? No Points 0 Interpretation Negative Tobacco Use: Question Answer Notes Are you a: never smoker REASON FOR REFERRAL No Information VITAL SIGNS Weight 165 lbs Aug, Weight-kg 74.84 kg Aug, Height 62 in Aug, BMI 30.18 kg/m2 Aug, Blood pressure systolic 124 mm Hg Aug, Blood pressure diastolic 72 mm Hg Aug, MEDICATIONS Medication SIG (Take, Route, Frequency, Duration) Notes Start Da te End Date Status Calcium 500 MG 1 tablet with meals Orally Twice a day Active Provera 10 MG 1 tablet with food Orally Once a day for 30 day(s) Jun, Active Ergocalciferol 86640 UNIT 1 capsule Orally weekly for 30 day(s) Active Ferrous Sulfate 325 (65 Fe) MG 1 tablet Orally Once a day for 90 day( s) Active PROCEDURES No Information RESULTS No Results REASON FOR VISIT PRE OP SURG 09/16/21 MEDICAL (GENERAL) HISTORY Type Description Date Medical History GERD Medical History Anemia- Transfusion 2 PRBC 02/2019 Medical History leiomyoma - Dr. You. petient defers biopsy now 03/2019 Medical History H-pylori + treated 02/2019 repeat rx 05/16 019 Medical History Carpal Tunnel Surgical History tumor removal (intracranial) Surgical History D & C Hospitalization History Severe Iron Deficiency anemi a secondary to Menometrorrhagia 02/2019 Goals Section No Information Health Concerns No Information MEDICAL EQUIPMENT No Information MENTAL STATUS No Information FUNCTIONAL STATUS No Information ASSESSMENTS Encounter Date Diagnosis Assessment Notes Treatment Notes Treatm ent Clinical Notes Aug, Leiomyoma of uterus (ICD-10 - D25.9) Aug, Pelvic pain (ICD-10 - R10.2) Aug, Abnormal uterine bleeding (ICD-10 - N93.9) Risks, benefits, alternatives, and indications of robotic-assisted total laparoscopic hysterectomy, bilateral salpingectomy, and cystoscopy were reviewed. We discussed the distinct possibility of laparotomy to complete this procedure. A minimally invasive approach may be precluded by an inability to manipulate the cervix and uterus, significant abdominopelvic adhesive disease, difficulty controlling bleeding, and/or incidental unintentional injury to surrounding organ or tissue. She was counseled regarding the possibility of needing a blood transfusion, additional procedures to treat unintentional injury, additional hospitalization/IV antibiotics for postoperative infection, or removal of one/both ovaries. She was counseled regarding the possibility of postoperative vaginal cuff dehiscence, which would require another surgery to correct. She understands that she is to adhere to vaginal rest x 8 weeks to minimize the risk of vaginal cuff dehiscence. The plan is for ovarian retention. She was counseled regarding the 5-10% lifetime chance of reoperation on the adnexa in the future (for benign or malignant indications). She was counseled regarding her lifetime risk of ovarian cancer being roughly 1/60. She was counseled that general anesthesia carries its own specific risks to include heart attack, stroke, or . Informed consent was obtained and placed in the chart. PLAN OF TREATMENT Treatment Notes Assessment Notes Clinical Notes Abnormal uterine bleeding Risks, benefit s, alternatives, and indications of robotic-assisted total laparoscopic hysterectomy, bilateral salpingectomy, and cystoscopy were reviewed. We discussed the distinct possibility of laparotomy to complete this procedure. A minimally invasive approach may be precluded by an inability to manipulate the cervix and uterus, significant abdominopelvic adhesive disease, difficulty controlling bleeding, and/or incidental unintentional injury to surrounding organ or tissue. She was counseled regarding the possibility of needing a blood transfusion, additional procedures to treat unintentional injury, additional hospitalization/IV antibiotics for postoperative infection, or removal of one/both ovaries. She was counseled regarding the possibility of postoperative vaginal cuff dehiscence, which would require another surgery to correct. She understands that she is to adhere to vaginal rest x 8 weeks to minimize the risk of vaginal cuff dehiscence. The plan is for ovarian retention. She was counseled regarding the 5-10% lifetime chance of reoperation on the adnexa in the future (for benign or malignant indications). She was counseled regarding her lifetime risk of ovarian cancer being roughly 1/60. She was counseled that general anesthesia carries its own specific risks to include heart attack, stroke, or . Informed consent was obtained and placed in the chart. Next Appt Details 09/16/21 Reason:OR Provider Name:Jeff Huber, 10:00:00 AM, [facility] [phone], [place], [address], Provider Name:Jeff Huber, 10:40:00 AM, [address] [facility], , [place], [address], Provider Name:Jeff Jamilah Morleya, 08:20:00 AM, [address] [facility], , [place], [address], Follow Up:09/16/21OR Insurance Providers Payer Name Payer Address Payer Phone Insured Name Patient Relati onship to Insured Coverage Start Date Coverage End Date [facility] [phone] [facility] [address] [place] [id number] PIETRO CLARK self
--- OUTSIDE RECORDS SUMMARY | 2021-09-16 06:11 | CCD | Continuity of Care Document ---
Author Author Sonia ANDERSON MD Organization Unknown Address [address] [facility] [address] [place] [address] Phone [phone] Care Team Providers Care Emergency Operator Name Role Phone Altagracia Smith DIRECTOR ORACLE DATABASE AUTM [phone] Problems Description No Information Available Social History Type Date Description Comments Sex Unknown ETOH Use Denies alcohol use Tobacco Use Start: Unknown Patient has never smoked Allergies and adverse reactions Description No Known Drug Allergies Medications Active Medications SIG Qnty Indications Ordering Provide r Date Calcium + D 500-1000 -20tc-Qxj-nfr Chewtabs 1 by mouth every day Unknown [...] Test Result H/L Range Note Order 08/30/2021 [facility] [address] [facility] [address] [place] [address] Surgery <pending> Procedures Date Code Description Status 08/29/2021 27466 Office/Outpatient Established Mo d MDM 30-39 Min Completed 08/22/2021 15184 Physical Therapy Eval - Low Comp lexity Completed 08/17/2021 96437 Office/Outpatient New Moderate M DM 45-59 Minutes Completed 08/17/2021 12004 Nerve Conduction 13+ Studies Com pleted 08/17/2021 34320 Needle Electromyography,Complete Five Or More Muscles Studied Completed 07/13/2021 59126 Office/Outpatient New Moderate M DM 45-59 Minutes Completed Medical Devices Description No Information Available Encounters Type Date Location Provider Dx Diagnosis Office Visit 08/29/2021 2:30p [place] Mark Aguilar MD G56.03 Carpal tunnel syndrome, bilateral upper limbs M50.322 Other cervical disc degenera tion at C5-C6 level M47.892 Other spondylosis, cervical region M54.12 Radiculopathy, cervical gardenia on M54.2 Cervicalgia Office Visit 08/17/2021 3:30p [place] Matty Anderson MD G56.03 Carpal tunnel syndrome, bilateral upper limbs M50.322 Other cervical disc degenera tion at C5-C6 level M47.892 Other spondylosis, cervical region M54.12 Radiculopathy, cervical gardenia on Office Visit 07/13/2021 3:15p [place] Mark Aguilar MD M54.2 Cervicalgia R20.0 Anesthesia [...] Mark Aguilar MD 08/22/2021 M54.2 Cervicalgia Randall Obregon, PT, DPT 08/17/2021 G56.03 Carpal tunnel syndrome, bilatera l upper limbs Matty Anderson MD 08/17/2021 M50.322 Other cervical disc degeneration at C5-C6 level Matty Anderson MD 08/17/2021 M47.892 Other spondylosis, cervical gardenia on Matty Anderson MD 08/17/2021 M54.12 Radiculopathy, cervical region H conrado Anderson MD 07/13/2021 M54.2 Cervicalgia Mark Aguilar MD [...] Appt Date SURGERY PER JOSE AT /S( [facility] ) NO AUTH REQUIRED FOR RT ENDO CTR(68841) TO SURGERY NT CALL REF #[id number] Created Mark Aguilar MD DME PER EVON AT /S([facility] ) NO AUTH REQUIRED FOR RT AND LEFT [employer] (L3908) AND THEY HAVE A $500 DEDUCTIBLE AND OUT OF POCKET OF $3,000 COVERED AT 80% AFTER DEDUCTIBLE TO [facility] NT CALL REF #[id number] Created [address] [place] [address] [phone] Mark Aguilar MD EMG PER [facility] AT AU TH REQUIRED AND THEY HAVE A $[address] TIL THEY MEET THERE OUT OF POCKET OF $3,000 TO SCHEDULING NT ALL REF # [id number] Created [facility] [place] [address] [phone] Mark Aguilar MD 30 combined PT visits per ca l year - 0 used as of this date $0.00 copay deductible has been met call reference # [id number] Spoke with Carmen painter Created [facility] [place] [address] [phone]
--- OUTSIDE RECORDS SUMMARY | 2021-09-16 06:11 | CCD | Continuity of Care Document ---
Author Author Sonia ANDERSON MD Organization Unknown Address [address] [place] [address], [facility] [address] [place] [address] Phone [phone] Care Team Providers Care Check Clerk Name Role Phone Altagracia Smith AUTM [phone] Problems Description No Information Available Social History Type Date Description Comments Sex Unknown ETOH Use Denies alcohol use Tobacco Use Start: Unknown Patient has never smoked Allergies and adverse reactions Description No Known Drug Allergies Medications Active Medications SIG Qnty Indications Ordering Provide r Date Calcium + D 500-1000 -51bo-Tba-hmh Chewtabs 1 by mouth every day Unknown [...] Available Procedures Date Code Description Status 08/17/2021 72887 Consultation Outpatient Level 4 Completed 08/17/2021 16535 Nerve Conduction 13+ Studies Com pleted 08/17/2021 79079 Needle Electromyography,Complete Five Or More Muscles Studied Completed 07/13/2021 64437 Office/Outpatient New Moderate M DM 45-59 Minutes Completed Medical Devices Description No Information Available Encounters Type Date Location Provider Dx Diagnosis Office Visit 08/17/2021 3:30p [place] Matty Anderson MD G56.03 Carpal tunnel syndrome, bilateral upper limbs M50.322 Other cervical disc degenera tion at C5-C6 level M47.892 Other spondylosis, cervical region M54.12 Radiculopathy, cervical gardenia on Office Visit 07/13/2021 3:15p [place] Mark Aguilar MD M54.2 Cervicalgia R20.0 Anesthesia [...] boyce MD Plan of Treatment Future Appointment(s):* 08/29/2021 2:30 pm - Mark Aguilar MD at [place] * 08/22/2021 4:30 pm - Randall Obregon, PT, DPT at Physical Therapy 08/17/2021 - Matty Anderson MD* G56.03 Carpal tunnel syndrome, bilateral upper limbs* Follow up:* EMG results with [facility]. * M50.322 Other cervical disc degeneration at C5-C6 level * M47.892 Other spondylosis, cervical region * M54.12 Radiculopathy, cervical region Functional Status Description No Information Available Mental Status Description No Information Available Referrals Refer to Reason for Referral Status Appt Date Mark Aguilar MD EMG PER [facility] AT NO AU TH REQUIRED AND THEY HAVE A $[address] LAMAR THEY MEET THERE OUT OF POCKET OF $3,000 TO SCHEDULING NT ALL REF # [id number] Created [address] [place] [address], [address] [place], [place] [id number] [phone] Mark Aguilar MD 30 combined PT visits per ca l year - 0 used as of this date $0.00 copay deductible has been met call reference # [id number] Spoke with Carmen painter Created [address] [facility], [address] [place] [address] [phone]
--- OUTSIDE RECORDS SUMMARY | 2021-09-16 06:11 | CCD | Continuity of Care Document ---
Author Author Sonia GILLILAND MD Organization Unknown Address [address] [address] Phone [phone] Care Team Providers Care Instrument Lens Generator Name Role Phone Altagracia Smith AUTM [phone] Problems Description No Information Available Social History Type Date Description Comments Sex Unknown ETOH Use Denies alcohol use Tobacco Use Start: Unknown Patient has never smoked Allergies and adverse reactions Description No Known Drug Allergies Medications Active Medications SIG Qnty Indications Ordering Provide r Date Calcium + D 500-1000 -84ev-Fvl-hzf Chewtabs 1 by mouth every day Unknown [...] Available Procedures Date Code Description Status 08/29/2021 43462 Office/Outpatient Established Mo d MDM 30-39 Min Completed 08/22/2021 64863 Physical Therapy Eval - Low Comp lexity Completed 08/17/2021 20440 Consultation Outpatient Level 4 Completed 08/17/2021 32217 Nerve Conduction 13+ Studies Com pleted 08/17/2021 23108 Needle Electromyography,Complete Five Or More Muscles Studied Completed 07/13/2021 98445 Office/Outpatient New Moderate M DM 45-59 Minutes Completed Medical Devices Description No Information Available Encounters Type Date Location Provider Dx Diagnosis Office Visit 08/29/2021 2:30p [place] Mark Gilliland MD G56.03 Carpal tunnel syndrome, bilateral upper limbs M50.322 Other cervical disc degenera tion at C5-C6 level M47.892 Other spondylosis, cervical region M54.12 Radiculopathy, cervical gardenia on M54.2 Cervicalgia Office Visit 08/17/2021 3:30p [place] Matty Whitehead MD G56.03 Carpal tunnel syndrome, bilateral upper limbs M50.322 Other cervical disc degenera tion at C5-C6 level M47.892 Other spondylosis, cervical region M54.12 Radiculopathy, cervical gardenia on Office Visit 07/13/2021 3:15p [place] Mark Gilliland MD M54.2 Cervicalgia R20.0 Anesthesia [...] Mark Gilliland MD DME PER EVON AT B/S([facility] ) NO AUTH REQUIRED FOR RT AND LEFT [employer] (L3908) AND THEY HAVE A $500 DEDUCTIBLE AND OUT OF POCKET OF $3,000 COVERED AT 80% AFTER DEDUCTIBLE TO [facility] NT CALL REF #[id number] Created [address] [place] [address] [phone] Mark Gilliland MD EMG PER [facility] AT NO AU TH REQUIRED AND THEY HAVE A $[address] [place] THEY MEET THERE OUT OF POCKET OF $3,000 TO SCHEDULING NT ALL REF # [id number] Created [address] [place] [address] [phone] Mark Gilliland MD 30 combined PT visits per ca l year - 0 used as of this date $0.00 copay deductible has been met call reference # [id number] Spoke with Carmen painter Created [address] [place] [address] [phone]
--- OUTSIDE RECORDS SUMMARY | 2021-09-16 06:12 | CCD ---
Author Author [facility] Organization [facility] Address Unknown Phone Unavailable Care Team Providers Care Roll Hand Name Role Phone Maring, Antonio PA Unavailable Unavailable Maring, Antonio PA Unavailable Unavailable Maring, Antonio PA Unavailable Unavailable Maring, Antonio PA Unavailable Unavailable Maring, Antonio PA Unavailable Unavailable Maring, Antonio PA Unavailable Unavailable Maring, Antonio PA Unavailable Unavailable Maring, Antonio PA Unavailable Unavailable Maring, Antonio PA Unavailable Unavailable Maring, Antonio PA Unavailable Unavailable Maring, Antonio PA Unavailable Unavailable Maring, Antonio PA Unavailable Unavailable Maring, Antonio PA Unavailable Unavailable Maring, Antonio PA Unavailable Unavailable Maring, Antonio PA Unavailable Unavailable Maring, Antonio PA Unavailable Unavailable Whitehead, Matty Unavailable Unavailable Whitehead, Matty Unavailable Unavailable Whitehead, Matty Unavailable Unavailable Whitehead, Matty Unavailable Unavailable Whitehead, Matty Unavailable Unavailable Whitehead, Matty Unavailable Unavailable Whitehead, Matty Unavailable Unavailable Whitehead, Matty Unavailable Unavailable Whitehead, Matty Unavailable Unavailable Whitehead, Matty Unavailable Unavailable Whitehead, Matty Unavailable Unavailable Whitehead, Matty Unavailable Unavailable Whitehead, Matty Unavailable Unavailable Whitehead, Matty Unavailable Unavailable Whitehead, Matty Unavailable Unavailable Whitehead, Matty Unavailable Unavailable Whitehead, Matty Unavailable Unavailable Whitehead, Matty Unavailable Unavailable Whitehead, Matty Unavailable Unavailable Whitehead, Matty Unavailable Unavailable Whitehead, Matty Unavailable Unavailable Whitehead, Matty Unavailable Unavailable Whitehead, Matty Unavailable Unavailable Whitehead, Matty Unavailable Unavailable Whitehead, Matty Unavailable Unavailable Whitehead, Matty Unavailable Unavailable Whitehead, Matty Unavailable Unavailable Whitehead, Matty Unavailable Unavailable Whitehead, Matty Unavailable Unavailable Whitehead, Matty Unavailable Unavailable Whitehead, Matty Unavailable Unavailable Whitehead, Matty Unavailable Unavailable Whitehead, Matty Unavailable Unavailable Whitehead, Matty Unavailable Unavailable Whitehead, Matty Unavailable Unavailable Whitehead, Matty Unavailable Unavailable Whitehead, Matty Unavailable Unavailable Whitehead, Matty Unavailable Unavailable Whitehead, Matty Unavailable Unavailable Whitehead, Matty Unavailable Unavailable Whitehead, Matty Unavailable Unavailable Whitehead, Matty Unavailable Unavailable Whitehead, Matty Unavailable Unavailable Whitehead, Matty Unavailable Unavailable Whitehead, Matty Unavailable Unavailable Aguilar, Radha Flores MD Unavailable Unavailable Aguilar, Radha Flores MD Unavailable Unavailable Aguilar, L Mark POMPA Unavailable Unavailable Aguilar, Radha Flores MD Unavailable Unavailable Aguilar, Radha Flores MD Unavailable Unavailable Aguilar, Radha Flores MD Unavailable Unavailable Aguilar, Radha Flores MD Unavailable Unavailable Aguilar, Radha Folres MD Unavailable Unavailable Aguilar, Radha Flores MD Unavailable Unavailable Aguilar, Radha Flores MD Unavailable Unavailable Aguilar, Radha Flores MD Unavailable Unavailable Aguilar, Radha Flores MD Unavailable Unavailable Aguilar, Radha Flores MD Unavailable Unavailable Aguilar, Radha Flores MD Unavailable Unavailable Aguilar, Radha Flores MD Unavailable Unavailable Aguilar, Radha Flores MD Unavailable Unavailable Aguilar, Radha Flores MD Unavailable Unavailable Aguilar, Radha Flores MD Unavailable Unavailable Aguilar, Radha Flores MD Unavailable Unavailable Aguilar, Radha Flores MD Unavailable Unavailable Aguilar, Radha Flores MD Unavailable Unavailable Aguilar, Radha Flores MD Unavailable Unavailable Aguilar, Radha Flores MD Unavailable Unavailable Aguilar, Radha Flores MD Unavailable Unavailable Aguilar, Radha Flores MD Unavailable Unavailable Aguilar, Radha Flores MD Unavailable Unavailable Aguilar, Radha Flores MD Unavailable Unavailable Aguilar, Radha Flores MD Unavailable Unavailable Aguilar, Radha Flores MD Unavailable Unavailable Aguilar, Radha Flores MD Unavailable Unavailable Aguilar, Radha Flores MD Unavailable Unavailable Aguilar, Radha Flores MD Unavailable Unavailable Aguilar, Radha Flores MD Unavailable Unavailable Aguilar, Radha Flores MD Unavailable Unavailable Aguilar, Radha Flores MD Unavailable Unavailable Aguilar, Radha Flores MD Unavailable Unavailable Aguilar, Radha Flores MD Unavailable Unavailable Aguilar, Radha Flores MD Unavailable Unavailable Aguilar, Radha Flores MD Unavailable Unavailable Aguilar, Radha Flores MD Unavailable Unavailable Aguilar, Radha Flores MD Unavailable Unavailable Aguilar, Radha Flores MD Unavailable Unavailable Aguilar, Radha Flores MD Unavailable Unavailable Aguilar, Radha Flores MD Unavailable Unavailable Aguilar, Radha Flores MD Unavailable Unavailable Aguilar, Radha Flores MD Unavailable Unavailable Aguilar, Radha Flores MD Unavailable Unavailable Aguilar, Radha Flores MD Unavailable Unavailable Aguilar, Radha Flores MD Unavailable Unavailable Aguilar, Radha Flores MD Unavailable Unavailable Aguilar, Radha Flores MD Unavailable Unavailable Re-disclosure Warning The records that you are about to access may contain information from federally-assisted alcohol or drug abuse programs. If such information is present, then the following federally mandated warning applies: This information has been disclosed to you from records protected by federal confidentiality rules (42 CFR part 2). The federal rules prohibit you from making any further disclosure of this information unless further disclosure is expressly permitted by the written consent of the person to whom it pertains or as otherwise permitted by 42 CFR part 2. A general authorization for the release of medical or other information is NOT sufficient for this purpose. The Federal rules restrict any use of the information to criminally investigate or prosecute any alcohol or drug abuse patient.The records that you are about to access may contain highly sensitive health information, the redisclosure of which is protected by Article 27-F of the [facility] Public Health law. If you continue you may have access to information: Regarding HIV / AIDS; Provided by facilities licensed or operated by the [facility] Office of Mental Health; or Provided by the [facility] Office for People With Developmental Disabilities. If such information is present, then the following [facility] mandated warning applies: This information has been disclosed to you from confidential records which are protected by state law. State law prohibits you from making any further disclosure of this information without the specific written consent of the person to whom it pertains, or as otherwise permitted by law. Any unauthorized further disclosure in violation of state law may result in a fine or long term sentence or both. A general authorization for the release of medical or other information is NOT sufficient authorization for further disc losure. Family History Family Member Name Family Member Gender Family Member Status Date o f Status Description Data Source(s) Unknown Unknown Problem MEDENT ([facility]NAGER) Encounters Encounter Providers Location Date Indications Data Source(s ) [place] [address] [facility] [address] 09/01/2021 12:00:00 AM EST eCW1 ([facility]) Outpatient Attender: Mark Aguilar MD Physical Therapy 08/29/2021 0 1:30:00 PM EST MEDENT ([facility]) Outpatient Attender: Matty Whitehead Physical Therapy 08/17/2021 03:30:0 0 PM EDT MEDENT ([facility]) Unknown [address] [facility] [address] 07/26/2021 12:00:00 AM EDT eCW1 ([facility]) Outpatient Attender: Mark Aguilar MD Physical Therapy 07/13/2021 0 3:15:00 PM EDT HOMA ([facility]) Outpatient [address] [facility] [address] 07/12/2021 12:00:00 AM EDT eCW1 ([facility]) Unknown [address] [facility] [address] 06/16/2021 12:00:00 AM EDT eCW1 ([facility]) [place] [address] [facility] [address] 05/27/2021 12:00:00 AM EDT eCW1 ([facility]) Outpatient [address] [facility] [address] 05/23/2021 12:00:00 AM EDT eCW1 ([facility]) [place] [address] [facility] [address] 05/20/2021 12:00:00 AM EDT eCW1 ([facility]) Unknown [address] [facility] [address] 04/13/2021 12:00:00 AM EDT eCW1 ([facility]) [place] [address] [facility] [address] 04/11/2021 12:00:00 AM EDT eCW1 ([facility]) Outpatient Attender: Antonio NIXON 01/08/20 03:02:12 PM EDT - 01/07/2021 03:34:04 PM EDT [facility] ([facility] ) Unknown [address] [facility] [address] 11/19/2020 12:00:00 AM EST eCW1 ([facility]) Out[place] [address] [facility] [address] 11/12/2020 12:00:00 AM EST eCW1 ([facility]) Immunizations Vaccine Date Status Description Data Source(s) COVID-19 VACCINE Moderna 02/15/2021 12:00:00 AM EDT completed [facility] Vaccine Series Complete: NOThis Data was Submitted to [facility] [employer]. COVID-19 VACCINE Moderna 01/18/2021 12:00:00 AM EDT completed [facility] Vaccine Series Complete: NOThis Data was Submitted to [facility] [employer]. Medications Medication Brand Name Start Date Product Form Dose Route Admi nistrative Instructions Pharmacy Instructions Status Indications Reaction Description Data Source(s) medroxyprogesterone acetate 10 MG Oral Tablet [Provera ] Provera 10 MG Provera 10 MG 07/12/2021 12:00:00 AM EDT 1.0 {tablet_with_food} active Provera 10 MG eCW1 ([facility]) medroxyprogesterone acetate 10 MG Oral Tablet [Provera ] Provera 10 MG Provera 10 MG 07/12/2021 12:00:00 AM EDT 1.0 {tablet_with_food} active Provera 10 MG eCW1 ([facility]) medroxyprogesterone acetate 10 MG Oral Tablet [Provera ] Provera 10 MG Provera 10 MG 07/12/2021 12:00:00 AM EDT 1.0 {tablet_with_food} active Provera 10 MG eCW1 ([facility]) Insurance Providers Payer name Policy type / Coverage type Policy ID Covered libertarian ID Covered libertarian's relationship to aguiar Policy Aguiar Plan Information [employer] and Blue [employer] - [place] Blue Cross/B lue Shield [id number] Self [id number] [place] [facility] [id number] SP [id number] [employer] BCBS B [id number] S ROS [id number] BCBS [employer] PROGRAM [id number] SP [id number] [place] [id number] SP [id number] [employer] BCBS B [id number] S ROS [id number] [place] [id number] SP [id number] [facility] 010/[id number] ANSI-Commercial [id number] ANSI-Commercial [id number] [facility] [id number] Self [id number] ANSI-Commercial [id number] ANSI-Commercial [id number] ANSI-Commercial [id number] ANSI-Commercial [id number] ANSI-Commercial [id number] ANSI-Commercial [id number] ANSI-Commercial [id number] [facility] FAULT [id number] SP [id number] [employer] [place] 010/510 [id number] SP [id number] [facility]ULT [id number] SP [id number] Problems, Conditions, and Diagnoses Code Display Name Description Problem Type Effective Dates Data Source(s) N93.9 [id number] Abnormal uterine bleeding Problem 05/20/2021 12:00:00 AM EDT eCW1 ([facility]) E78.5 Hyperlipidemia Hyperlipidemia Problem 04/11/2021 12:00: 00 AM EDT eCW1 ([facility]) Surgeries/Procedures Procedure Description Date Indications Data Source(s) OFFICE OUTPATIENT VISIT 25 MINUTES 08/29/2021 12:00:00 AM EST MEDENT ([facility] ) Physical Therapy Eval - Low Complexity 08/22/2021 12:0 0:00 AM EST MEDENT ([facility] ) Needle electromyography, each extremity, with related paraspinal areas, when performed, done with nerve conduction, amplitude and latency/velocity study; complete, five or more muscles studied, innervated by three or more nerves or four or more spinal levels (list separately in addition to the code for primary procedure). 08/17/2021 12:00:00 AM EDT MEDEN T ([facility] ) [address] Nerve conduction studies 13 or more studies NEW 201208/17/2021 12:00:00 AM EDT MEDENT ([facility]) OFFICE OUTPATIENT NEW 45 MINUTES 08/17/2021 12:00:00 A M EDT MEDENT ([facility] ) OFFICE CONSULTATION NEW/ESTAB PATIENT 60 MIN 12:00:00 AM EDT MEDENT ([facility] ) OFFICE OUTPATIENT NEW 45 MINUTES 07/13/2021 12:00:00 A M EDT MEDENT ([facility] ) URINE TEST 07/12/2021 12:00:00 AM EDT eCW1 ([facility]) Results ID Date Data Source [id number] 09/12/2021 09:20:00 AM EST [facility] Name Value Range Interpretation Code Description Data Jamila rce(s) Supporting Document(s) SARS-CoV-2 (COVID-19) RNA [Presence] in Respiratory specimen by MARJAN with probe detection Not Detected [facility] This lab was ordered by [facility] and reported by [employer]. ID Date Data Source [id number] 08/30/2021 11:24:00 AM EST MEDENT ([facility]) Name Value Range Interpretation Code Description Data Jamila rce(s) Supporting Document(s) Laboratory test finding (navigational concept) Laboratory test result MEDENT ([facility]) ID Date Data Source Pathology Request For Service 07/12/2021 12:00:00 AM EDT eCW 1 ([facility]) Name Value Range Interpretation Code Description Data Jamila rce(s) Supporting Document(s) GENITOURINARY eCW1 ([facility]) ID Date Data Source VITAMIN D 25-HYDROXY 04/12/2021 12:00:00 AM EDT eCW1 ([facility]) Name Value Range Interpretation Code Description Data Jamila rce(s) Supporting Document(s) 18.5 30.0-100.0 TOTAL 25(OH) VITAMIN D eC W1 ([facility]) ID Date Data Source TSH 04/12/2021 12:00:00 AM EDT eCW1 ([facility]) Name Value Range Interpretation Code Description Data Jamila rce(s) Supporting Document(s) 1.880 0.358-3.740 THYROID STIMULATING HORM ONE eCW1 ([facility]) ID Date Data Source LIPID PANEL (CARDIAC RISK) 04/12/2021 12:00:00 AM EDT eCW1 ( [facility]) Name Value Range Interpretation Code Description Data Jamila rce(s) Supporting Document(s) Triglyceride [Mass/volume] in Serum or Plasma by calculation 226 <150 TRIGLYCERIDES LEVEL eCW1 ([facility]) Cholesterol [Moles/volume] in Serum or Plasma 248 <200 CHOLESTEROL LEVEL eCW1 ([facility]) Cholesterol in HDL [Moles/volume] in Serum or Plasma 53 >40 HDL CHOLESTEROL eCW1 ([facility]) 4.679 <5 CHOLESTEROL RISK RATIO eCW1 ([facility]) Cholesterol in LDL [Mass/volume] in Serum or Plasma by calculation 150 <100 LDL CHOLESTEROL eCW1 ([facility]) 195 NON-HDL-C eCW1 ([facility]) ID Date Data Source [id number] 04/12/2021 12:00:00 AM EDT eCW1 ([facility]) Name Value Range Interpretation Code Description Data Jamila rce(s) Supporting Document(s) Hemoglobin A1c/Hemoglobin.total in Blood 5.3 HEMOGLOBIN A1c eCW1 ([facility]) ID Date Data Source FERRITIN 04/12/2021 12:00:00 AM EDT eCW1 ([facility]) Name Value Range Interpretation Code Description Data Jamila rce(s) Supporting Document(s) 5 8-252 FERRITIN eCW1 ([facility]) ID Date Data Source Comprehensive Metabolic Profile (CMP) 04/12/2021 12:00:00 AM EDT eCW1 ([facility]) Name Value Range Interpretation Code Description Data Jamila rce(s) Supporting Document(s) 96 70-100 GLUCOSE, FASTING eCW1 ([facility]) 0.57 0.55-1.30 CREATININE FOR GFR eCW1 ([facility]) 16 7-18 BLOOD UREA NITROGEN eCW1 ([facility]) > 60.0 >58 GLOMERULAR FILTRATION RATE eCW 1 ([facility]) 137 136-145 SODIUM LEVEL eCW1 ([facility]) 3.8 3.5-5.1 POTASSIUM SERUM eCW1 ([facility]) 29 21-32 CARBON DIOXIDE LEVEL eCW1 ([facility]) 8.6 8.5-10.1 CALCIUM LEVEL eCW1 ([facility]) 104 98-107 CHLORIDE LEVEL eCW1 ([facility]) 24 12-78 ALT/SGPT eCW1 ([facility]) 65 45-117 ALKALINE PHOSPHATASE eCW1 ([facility]) 0.3 0.2-1.0 BILIRUBIN,TOTAL eCW1 ([facility]) 20 7-37 AST/SGOT eCW1 ([facility]) 3.6 3.2-5.2 ALBUMIN eCW1 ([facility]) 0.9 1.2-2.2 ALBUMIN/GLOBULIN RATIO eCW1 ([facility]) 7.4 6.4-8.2 TOTAL PROTEIN eCW1 ([facility]) ID Date Data Source CBC with Differential 04/12/2021 12:00:00 AM EDT eCW1 ([facility]) Name Value Range Interpretation Code Description Data Jamila rce(s) Supporting Document(s) 7.6 4.0-10.0 WHITE BLOOD COUNT eCW1 ([facility]) 9.2 12.0-15.5 HEMOGLOBIN eCW1 ([facility]) 3.93 4.00-5.40 RED BLOOD COUNT eCW1 ([facility]) 30.6 36.0-47.0 HEMATOCRIT eCW1 ([facility]) 15.9 11.5-14.5 RED CELL DISTRIBUTION WID TH eCW1 ([facility]) 77.9 80.0-96.0 MEAN CORPUSCULAR VOLUME e CW1 ([facility]) 30.1 32.0-36.5 MEAN CORPUSCULAR HGB CONC eCW1 ([facility]) 23.4 27.0-33.0 MEAN CORPUSCULAR HEMOGLOB IN eCW1 ([facility]) 446 150-450 PLATELET COUNT, AUTOMATED eCW1 ([facility]) 28.0 24.0-44.0 LYMPH % eCW1 ([facility]) 60.8 36.0-66.0 NEUTROPHILS % eCW1 ([facility]) 0.9 0.0-1.0 BASO % eCW1 ([facility]) 7.3 2.0-8.0 MONO % eCW1 ([facility]) 2.2 0.0-3.0 EOS % eCW1 ([facility]) 2.1 1.5-5.0 LYMPH # eCW1 ([facility]) 0.6 0.0-0.8 MONO # eCW1 ([facility]) 4.6 1.5-8.5 NEUTROPHILS # eCW1 ([facility]) 0.1 0.0-0.2 BASO # eCW1 ([facility]) 0.2 0.0-0.5 EOS # eCW1 ([facility]) Procedure Social History Code Duration Value Status Description Data Source(s ) Smoking 09/01/2021 12:00:00 AM EST Never Smoker completed Never S moker eCW1 ([facility]) Smoking 07/07/2021 12:00:00 AM EDT Never Smoker completed Never S moker eCW1 ([facility]) Smoking 07/07/2021 12:00:00 AM EDT Never Smoker completed Never S moker eCW1 ([facility]) Smoking 05/23/2021 12:00:00 AM EDT Never Smoker completed Never S moker eCW1 ([facility]) Smoking 05/23/2021 12:00:00 AM EDT Never Smoker completed Never S moker eCW1 ([facility]) Smoking 05/23/2021 12:00:00 AM EDT Never Smoker completed Never S moker eCW1 ([facility]) Smoking 05/23/2021 12:00:00 AM EDT Never Smoker completed Never S moker eCW1 ([facility]) Smoking 04/11/2021 12:00:00 AM EDT Never Smoker completed Never S moker eCW1 ([facility]) Smoking 04/11/2021 12:00:00 AM EDT Never Smoker completed Never S moker eCW1 ([facility]) Smoking 11/12/2020 12:00:00 AM EST Never Smoker completed Never S moker eCW1 ([facility]) Smoking 11/12/2020 12:00:00 AM EST Never Smoker completed Never S moker eCW1 ([facility]) Vital Signs ID Date Data Source UNK Name Value Range Interpretation Code Description Data Source(s) Body height 62 [in_i] 62 [in_i] eCW1 ([facility]) Body weight 165 [lb_av] 165 [lb_av] eCW1 ([facility]) Body mass index (BMI) [Ratio] 30.18 kg/m2 30.18 kg/m2 eCW1 ([facility]) Body weight 74.84 kg 74.84 kg eCW1 ([facility]) Systolic blood pressure 124 mm[Hg] 124 mm[Hg] e CW1 ([facility]) Diastolic blood pressure 72 mm[Hg] 72 mm[Hg] eCW1 ([facility]) Body temperature 97.3 [degF] 97.3 [degF] MEDENT ([facility]) Body height 61 [in_i] 61 [in_i] MEDENT ([facility]) 5'1" Body mass index (BMI) [Ratio] 29.5 kg/m2 29.5 k g/m2 MEDENT ([facility]) Body weight 156.12 [lb_av] 156.12 [lb_av] MEDEN T ([facility]) Body weight 158 [lb_av] 158 [lb_av] eCW1 ([facility]) Body height 62 [in_i] 62 [in_i] eCW1 ([facility]) Body mass index (BMI) [Ratio] 28.9 kg/m2 28.9 k g/m2 eCW1 ([facility]) Systolic blood pressure 122 mm[Hg] 122 mm[Hg] e CW1 ([facility]) Diastolic blood pressure 80 mm[Hg] 80 mm[Hg] eCW1 ([facility]) Body weight 158 [lb_av] 158 [lb_av] eCW1 ([facility]) Body weight 71.67 kg 71.67 kg eCW1 ([facility]) Body height 62 [in_i] 62 [in_i] eCW1 [facility] [facility]) Body mass index (BMI) [Ratio] 28.90 kg/m2 28.90 kg/m2 eCW1 ([facility]ly [facility], [facility]) Heart rate 92 /min 92 /min eCW1 ([facility]) Respiratory rate 18 /min 18 /min eCW1 ([facility]) Body temperature 97.9 [degF] 97.9 [degF] eCW1 ( Formerly [facility], [facility]) Systolic blood pressure 116 mm[Hg] 116 mm[Hg] e CW1 (Formerly [facility], [facility]) Diastolic blood pressure 72 mm[Hg] 72 mm[Hg] eCW1 (Formerly [facility], [facility]) Body weight 159.2 [lb_av] 159.2 [lb_av] eCW1 ([facility]) Body height 62 [in_i] 62 [in_i] eCW1 ([facility]) Body mass index (BMI) [Ratio] 29.11 kg/m2 29.11 kg/m2 eCW1 (Formerly [facility], [facility]) Systolic blood pressure 122 mm[Hg] 122 mm[Hg] e CW1 ([facility]ly [facility], [facility]) Diastolic blood pressure 84 mm[Hg] 84 mm[Hg] eCW1 ([facility]ly [facility], [facility]) Body weight 147.12 [lb_av] 147.12 [lb_av] eCW1 ([facility]ly [facility], [facility]) Body height 62 [in_i] 62 [in_i] eCW1 ([facility]) Body mass index (BMI) [Ratio] 26.91 kg/m2 26.91 kg/m2 eCW1 (Formerly [facility], [facility]) Heart rate 107 /min 107 /min eCW1 ([facility]) Respiratory rate 18 /min 18 /min eCW1 ([facility]) Body temperature 98 [degF] 98 [degF] eCW1 ([facility]) Systolic blood pressure 110 mm[Hg] 110 mm[Hg] e CW1 ([facility], [facility]) Diastolic blood pressure 70 mm[Hg] 70 mm[Hg] eCW1 ([facility], [facility]) Body weight 159.4 [lb_av] 159.4 [lb_av] eCW1 ([facility]) Heart rate 82 /min 82 /min eCW1 ([facility]) Body height 62 [in_i] 62 [in_i] eCW1 ([facility]) Body mass index (BMI) [Ratio] 29.15 kg/m2 29.15 kg/m2 eCW1 ([facility], [facility]) Body temperature 97.7 [degF] 97.7 [degF] eCW1 ( [facility]) Systolic blood pressure 110 mm[Hg] 110 mm[Hg] e CW1 ([facility], [facility]) Diastolic blood pressure 68 mm[Hg] 68 mm[Hg] eCW1 ([facility], [facility]) Respiratory rate 18 /min 18 /min eCW1 ([facility]) Patient Treatment Plan of Care Planned Activity Planned Date Details Description Data Source (s) medroxyprogesterone acetate 10 MG Oral Tablet [Provera ] 07/12/2021 12:00:00 AM EDT eCW1 ([facility]) medroxyprogesterone acetate 10 MG Oral Tablet [Provera ] 07/12/2021 12:00:00 AM EDT eCW1 ([facility])
--- OUTSIDE RECORDS SUMMARY | 2021-09-16 06:12 | CCD | Continuity of Care Document ---
Author Author Sonia GILLILAND MD Organization Unknown Address [address] [address] Phone [phone] Care Team Providers Care Clock And Watch Hands Mounter Name Role Phone Altagracia Smith AUTM [phone] Problems Description No Information Available Social History Type Date Description Comments Sex Unknown Allergies, Adverse Reactions, Alerts Description No Information Available Medications Description No Information Available Immunizations Description No Information Available Vital Signs Date Vital Result Comment 07/13/2021 3:38pm Body Temperature 97.3 F Height 61 inches 5'1" Weight 156.12 lb BMI (Body Mass Index) 29.5 kg/m2 Results Description No Information Available Procedures Description No Information Available Medical Devices Description No Information Available Encounters Description No Information Available Assessments Date Code Description Provider 07/13/2021 M54.2 Cervicalgia Mark Gilliland MD Plan of Treatment 07/13/2021 - Mark Gilliland MD* M54.2 Cervicalgia* Follow up:* after BUE EMG with BLB Functional Status Description No Information Available Mental Status Description No Information Available Referrals Description No Information Available
--- OUTSIDE RECORDS SUMMARY | 2021-09-16 06:12 | CCD ---
Author Author [facility] Organization [facility] Address Unknown Phone Unavailable Care Team Providers Care Screener And Blender Name Role Phone Jeff Huber Unavailable PROBLEMS Type Condition ICD9-CM Code [id number] Code Onset Dates Condition S tatus W/U Status Risk SNOMED Code Notes Problem Hyperlipidemia E78.5 Active confirmed 35067 004 Problem Abnormal uterine bleeding N93.9 Active confirmed 03530231625304 Problem Vitamin D deficiency, unspecified E55.9 Active con firmed 25922955 Problem Gastroesophageal reflux K21.9 Active confirmed 247915893 Problem Fe deficiency anemia D50.9 Active confirmed 43612465 ALLERGIES No Known Allergies ENCOUNTERS from 1972 to 2021-07-14 Encounter Location Date Provider Diagnosis [facility] [address] [place] [address] [place] [address] 28 Jun, 2021 Jeff Huber Abnormal uterine ble eding N93.9 and Uterine leiomyoma D25.9 IMMUNIZATIONS No Information SOCIAL HISTORY Tobacco Use: Social History Observation Description Date Details (start date - stop date) Never Smoker Sex Assigned At : Social History Observation Description Sex Assigned At Unknown Education: Question Answer Notes Level of Education: Not finished High School 6th grade Audit Question Answer Notes Total Score: 1 Interpretation: Alcohol Education Language: Question Answer Notes Languages spoken: Stateless Scottish Mandaen: Question Answer Notes Mandaen 21 [facility] Question Answer Notes Total Score: 0 Interpretation: No problems reported Alcohol Screening: Question Answer Notes Did you have a drink containing alcohol in the past year? No Points 0 Interpretation Negative Tobacco Use: Question Answer Notes Are you a: never smoker REASON FOR REFERRAL No Information VITAL SIGNS Weight 158 lbs Jun, Height 62 in Jun, BMI 28.9 kg/m2 Jun, Blood pressure systolic 122 mm Hg Jun, Blood pressure diastolic 80 mm Hg Jun, MEDICATIONS Medication SIG (Take, Route, Frequency, Duration) Notes Start Da te End Date Status Calcium 500 MG 1 tablet with meals Orally Twice a day Active Ergocalciferol 65670 UNIT 1 capsule Orally weekly for 30 day(s) Active Provera 10 MG 1 tablet with food Orally Once a day for 30 day(s) Jun, Active Ferrous Sulfate 325 (65 Fe) MG 1 tablet Orally Once a day for 90 day( s) Active PROCEDURES from 1972 to 2021-07-14 Procedure Date Ordered Result Body Site URINE TEST 2021-07-12 Negative RESULTS Component Value Reference Range Pathology Request For Service Reviewed date:07/14/2021 10:52:07 Interpretation: Performing Lab:[facility] [address] [address] , ,[facility] GENITOURINARY REASON FOR VISIT EMB X MEDICAL (GENERAL) HISTORY Type Description Date Medical History GERD Medical History Anemia- Transfusion 2 PRBC 02/2019 Medical History leiomyoma - Dr. You. petient defers biopsy now 03/2019 Medical History H-pylori + treated 02/2019 repeat rx 05/16 019 Surgical History tumor removal Surgical History D & C Hospitalization History Severe Iron Deficiency anemi a secondary to Menometrorrhagia 02/2019 Goals Section No Information Health Concerns No Information MEDICAL EQUIPMENT No Information MENTAL STATUS No Information FUNCTIONAL STATUS No Information ASSESSMENTS Encounter Date Diagnosis Assessment Notes Treatment Notes Treatm ent Clinical Notes Jun, Abnormal uterine bleeding (ICD-10 - N93.9) Uncomplicated EMBX in-office today. Bleeding, pain, fever, infectious precautions were reviewed. Final pathology will be reviewed with patient once result is available. Advised OTC NSAID or Tylenol for pain control. Rx for Provera entered. If ineffective, then I will prescribe tranexamic acid. Patient will have a follow up appt for preop counseling/exam. Jun, Uterine leiomyoma (ICD-10 - D25.9) PLAN OF TREATMENT Medication Medication Name Sig Start Date Stop Date Provera 10 MG 1 tablet with food Orally Once a day for 30 day( s) Jun, Treatment Notes Assessment Notes Clinical Notes Abnormal uterine bleeding Uncomplicated EMBX in-office today. Bleeding, pain, fever, infectious precautions were reviewed. Final pathology will be reviewed with patient once result is available. Advised OTC NSAID or Tylenol for pain control. Rx for Provera entered. If ineffective, then I will prescribe tranexamic acid. Patient will have a follow up appt for preop counseling/exam. Insurance Providers Payer Name Payer Address Payer Phone Insured Name Patient Relati onship to Insured Coverage Start Date Coverage End Date [facility] [phone] [facility] [address] [facility] [id number] [address] [place] self
--- OUTSIDE RECORDS SUMMARY | 2021-09-16 06:12 | CCD | Continuity of Care Document ---
Author Author Sonia GILLILAND MD Organization Unknown Address [address] [address] Phone [phone] Care Team Providers Care Turfgrass Management Professor Name Role Phone Altagracia Smith AUTM [phone] Problems Description No Information Available Social History Type Date Description Comments Sex Unknown ETOH Use Denies alcohol use Tobacco Use Start: Unknown Patient has never smoked Allergies and adverse reactions Description No Known Drug Allergies Medications Active Medications SIG Qnty Indications Ordering Provide r Date Calcium + D 500-1000 -47od-Jhj-jwj Chewtabs 1 by mouth every day Unknown /0 000 Vitamin D (Cholecalciferol) 50mcg (2000 Ut) Capsules take 5000 iu daily Unknown 0 Immunizations Description No Information Available Vital Signs Date Vital Result Comment 07/13/2021 3:38pm Body Temperature 97.3 F Height 61 inches 5'1" Weight 156.12 lb BMI (Body Mass Index) 29.5 kg/m2 Results Description No Information Available Procedures Date Code Description Status 07/13/2021 83657 Office/Outpatient New Moderate M DM 45-59 Minutes Completed Medical Devices Description No Information Available Encounters Type Date Location Provider Dx Diagnosis Office Visit 07/13/2021 3:15p [place] Mark Gilliland MD M54.2 Cervicalgia R20.0 Anesthesia of skin Assessments Date Code Description Provider 07/13/2021 M54.2 Cervicalgia Mark Gilliland MD 07/13/2021 R20.0 Anesthesia of skin Mark dykes MD Plan of Treatment Future Appointment(s):* 08/17/2021 3:30 pm - Matty Whitehead MD at [place] 07/13/2021 - Mark Gilliland MD* M54.2 Cervicalgia* Follow up:* after BUE EMG with BLB * R20.0 Anesthesia of skin Functional Status Description No Information Available Mental Status Description No Information Available Referrals Refer to Reason for Referral Status Appt Date Mark Gilliland MD EMG PER [facility] AT NO AU TH REQUIRED AND THEY HAVE A $[address] TIL THEY MEET THERE OUT OF POCKET OF $3,000 TO SCHEDULING NT ALL REF # [id number] Created [address] [place] [address], [place] [address] [phone] Mark Gilliland MD 30 combined PT visits per ca l year - 0 used as of this date $0.00 copay deductible has been met call reference # [id number] Spoke with Carmen painter Created [address] [place] [address], [place] [address] [phone]
--- OUTSIDE RECORDS SUMMARY | 2021-09-16 06:12 | CCD ---
Author Author [facility] Organization [facility] Address Unknown Phone Unavailable Care Team Providers Care Compact Assembler Name Role Phone Huber, Jeff Unavailable PROBLEMS Type Condition ICD9-CM Code UCC54-SJ Code Onset Dates Condition S tatus W/U Status Risk SNOMED Code Notes Problem Hyperlipidemia E78.5 Active confirmed 34931 004 Problem Abnormal uterine bleeding N93.9 Active confirmed [id number] Problem Vitamin D deficiency, unspecified E55.9 Active con firmed 74950486 Problem Gastroesophageal reflux K21.9 Active confirmed 421044307 Problem Fe deficiency anemia D50.9 Active confirmed 88361230 ALLERGIES No Known Allergies ENCOUNTERS from 1972 to 2021-07-26 Encounter Location Date Provider Diagnosis [facility] [address] [place] [address] [place] [address] Jul, Jeff Huber IMMUNIZATIONS No Information SOCIAL HISTORY Tobacco Use: Social History Observation Description Date Details (start date - stop date) Never Smoker Sex Assigned At : Social History Observation Description Sex Assigned At Unknown Education: Question Answer Notes Level of Education: Not finished High School 6th grade Audit Question Answer Notes Total Score: 1 Interpretation: Alcohol Education Language: Question Answer Notes Languages spoken: Syriac Chinese Samaritan: Question Answer Notes Samaritan 21 [facility] Drug and Alcohol Question Answer Notes Total Score: 0 Interpretation: No problems reported Alcohol Screening: Question Answer Notes Did you have a drink containing alcohol in the past year? No Points 0 Interpretation Negative Tobacco Use: Question Answer Notes Are you a: never smoker REASON FOR REFERRAL No Information VITAL SIGNS No information MEDICATIONS Medication SIG (Take, Route, Frequency, Duration) Notes Start Da te End Date Status Calcium 500 MG 1 tablet with meals Orally Twice a day Active Ergocalciferol 14749 UNIT 1 capsule Orally weekly for 30 day(s) Active Provera 10 MG 1 tablet with food Orally Once a day for 30 day(s) Jun, Active Ferrous Sulfate 325 (65 Fe) MG 1 tablet Orally Once a day for 90 day( s) Active PROCEDURES No Information RESULTS No Results REASON FOR VISIT 09/16/21 SURG AUTH MEDICAL (GENERAL) HISTORY Type Description Date Medical [...] No Information FUNCTIONAL STATUS No Information ASSESSMENTS No Information PLAN OF TREATMENT Medication Medication Name Sig Start Date Stop Date Provera 10 MG 1 tablet with food Orally Once a day for 30 day( s) Jun, Next Appt Details Provider Name:Jeff Huber, 02:20:00 PM, [address] [place] [address], [place], [address], Provider Name:Jeff Huber, 12:30:00 AM, [address] [place] [address], [place], [address], Provider Name:Jeff Huber, 10:40:00 AM, [address] [place] [address], [place], [address], Provider Name:Jeff Huber 08:20:00 AM, [address] [place] [address], [place], [address], Insurance Providers Payer Name Payer Address Payer Phone Insured Name Patient Relati onship to Insured Coverage Start Date Coverage End Date [facility] [phone] [place] [id number] [facility] [id number] [address] self
--- OUTSIDE RECORDS SUMMARY | 2021-09-16 06:12 | CCD | Continuity of Care Document ---
Author Author Sonia ANDERSON MD Organization Unknown Address [address] [place] [address], [facility] [address] [place] [address] Phone [phone] Care Team Providers Care Construction Rigger Name Role Phone Altagracia Smith AUTM [phone] Problems Description No Information Available Social History Type Date Description Comments Sex Unknown ETOH Use Denies alcohol use Tobacco Use Start: Unknown Patient has never smoked Allergies and adverse reactions Description No Known Drug Allergies Medications Active Medications SIG Qnty Indications Ordering Provide r Date Calcium + D 500-1000 -77bk-Itg-wfn Chewtabs 1 by mouth every day Unknown [...] Available Procedures Date Code Description Status 08/17/2021 65454 Consultation Outpatient Level 4 Completed 08/17/2021 41742 Nerve Conduction 13+ Studies Com pleted 08/17/2021 02984 Needle Electromyography,Complete Five Or More Muscles Studied Completed 07/13/2021 32827 Office/Outpatient New Moderate M DM 45-59 Minutes Completed Medical Devices Description No Information Available Encounters Type Date Location Provider Dx Diagnosis Office Visit 08/17/2021 3:30p [place] Matty Andreson MD G56.03 Carpal tunnel syndrome, bilateral upper limbs M50.322 Other cervical disc degenera tion at C5-C6 level M47.892 Other spondylosis, cervical region M54.12 Radiculopathy, cervical gardenia on Office Visit 07/13/2021 3:15p [place] Mark Aguilar MD M54.2 Cervicalgia R20.0 Anesthesia [...] 2:30 pm - Mark Aguilar MD at [place] * 08/22/2021 4:30 pm - Randall Obregon, [...] $3,000 TO SCHEDULING NT ALL REF # [id number] Created [address] [place] [address], [address] [place], [place] [id number] [phone] Mark Aguilar MD 30 combined PT visits per ca l year - 0 used as of this date $0.00 copay deductible has been met call reference # [id number] Spoke with Carmen painter Created [address] [facility], [address] [place] [address] [phone]
[2021-09-16 06:38] LABS: HEMATOCRIT 34.4 % (36.0-47.0); HEMOGLOBIN 10.5 g/dl (12.0-15.5); MEAN CORPUSCULAR HEMOGLOBIN 26.4 pg (27.0-33.0); MEAN CORPUSCULAR HGB CONC 30.5 g/dl (32.0-36.5); MEAN CORPUSCULAR VOLUME 86.4 fl (80.0-96.0); PLATELET COUNT, AUTOMATED 382 10^3/uL (150-450); RED BLOOD COUNT 3.98 10^6/uL (4.00-5.40); WHITE BLOOD COUNT 6.4 10^3/uL (4.0-10.0)
[2021-09-16 06:58] LABS: HCG, SERUM QUALITATIVE NEGATIVE (NEGATIVE)
[2021-09-16] MEDS ORDERED: BUPIVACAINE HCL 0.25% 30ML VIAL As Ordered ONE (07:09)
[2021-09-16] MEDS ORDERED: METHYLENE BLUE 0.5% (5MG/ML) 10 ML AMP (PROVAYBLUE) As Ordered ONE (07:10)
[2021-09-16] MEDS ORDERED: propofoL 200 MG/20 ML VIAL As Ordered ONE (07:21)
[2021-09-16] MEDS ORDERED: fentaNYL 250 MCG/5 ML INJECTION (J3010) As Ordered ONE (07:21)
[2021-09-16] MEDS ORDERED: ROCURONIUM BROMIDE 50 MG/5 ML VIAL As Ordered ONE ×2 (07:21→08:23)
[2021-09-16] MEDS ORDERED: LIDOCAINE 2% 100MG/5ML SDV (FOR ANES.) As Ordered ONE (07:21)
[2021-09-16] MEDS ORDERED: MIDAZOLAM INJ 2MG/2ML VIAL (J2250 PER 1MG) As Ordered ONE (07:22)
[2021-09-16] MEDS ORDERED: dexameTHASONE 4 MG/ML 1ML VIAL (J1100 PER 1MG) As Ordered ONE (07:56)
[2021-09-16] MEDS ORDERED: PHENYLephrine 500MCG 5ML (100MCG/ML) SYRINGE As Ordered ONE (08:00)
[2021-09-16] MEDS ORDERED: KETOROLAC 60MG 2ML VIAL As Ordered ONE (08:13)
[2021-09-16] MEDS ORDERED: ONDANSETRON 4MG/2ML VIAL As Ordered ONE (08:13)
[2021-09-16] MEDS ORDERED: SUGAMMADEX SODIUM 500 MG/5 ML VIAL (BRIDION) As Ordered ONE ×2 (08:13→08:14)
[2021-09-16] MEDS ORDERED: ACETAMINOPHEN 1000MG 100ML IV BTL (OFIRMEV) (J0131 PER 10MG) As Ordered ONE (08:13)
[2021-09-16] MEDS ORDERED: METOCLOPRAMIDE INJ 10MG/2ML VIAL (J2765 PER 1) As Ordered ONE (08:13)
[2021-09-16] MEDS ORDERED: HYDROmorphone HCL 2 MG/ML 1ML VIAL As Ordered ONE (08:14)
[2021-09-16] MEDS ORDERED: LR 1,000 ML IV SCH ×2 (13:05)
[2021-09-16] MEDS ORDERED: oxyCODONE 5MG TAB PO PRN (13:05)
[2021-09-16] MEDS ORDERED: METOCLOPRAMIDE INJ 10MG/2ML VIAL (J2765 PER 1) IV PRN (13:05)
[2021-09-16] MEDS ORDERED: fentaNYL 100 MCG/2 ML INJECTION (J3010) IV PRN (13:05)
[2021-09-16] MEDS ORDERED: ONDANSETRON 4MG/2ML VIAL IV PRN ×2 (13:05→14:00)
[2021-09-16] MEDS ORDERED: HYDROMORPHONE HCL 0.5 MG/ 0.5 ML SYRINGE (J1170 PER 1) IV PRN (13:05)
[2021-09-16] MEDS ORDERED: PERCOCET 5MG/325MG TAB PO PRN (14:00)
[2021-09-16] MEDS ORDERED: MORPHINE 4 MG/ML 1ML VIAL/SYRINGE (J2270) IV PRN (14:05)
[2021-09-16] MEDS: KETOROLAC 30 MG/ML 1ML VIAL IV SCH ×2 (14:18→20:46)
--- NOTE | 2021-09-16 14:18 | ROOPDOC ---
[facility] Report Of Operation Report of Operation DATE OF PROCEDURE: 09/16/2021 PREPROCEDURE DIAGNOSES: Uterine leiomyomas. Abnormal uterine bleeding, chronic pelvic pain. POSTPROCEDURE DIAGNOSES: Same. PROCEDURE: Robotic-assisted total laparoscopic hysterectomy, bilateral salpingectomy, cystoscopy SURGEON: Jeff Huber D.O. FACOG ECHOCARDIOGRAPHY TECH: Catrachita Cespedes ANESTHESIA: General endotracheal. ESTIMATED BLOOD LOSS: Approximately 100 mL. FLUIDS REPLACED: 1500 mL LR URINE OUTPUT: 350 mL COMPLICATIONS: None. FINDINGS: Normal-appearing ovaries bilaterally. Uterus was approximately 14-15 centimeters in greatest dimension with multiple uterine leiomyomas and weighed 535g. Left ureter was in close proximity to left sided cervical/lower uterine segment leiomyoma, distorting normal anatomy. Cystoscopy: Bilateral ureteral orifice efflux, no bladder injury/suture material. PREOPERATIVE ANTIBIOTIC PROPHYLAXIS: Ancef 2 g IV 1. Redosed at the fourth hour of surgery. SPECIMEN(S): Uterus w/ cervix, bilateral fallopian tubes (535g) DESCRIPTION OF PROCEDURE: The patient was counseled, consented on the respective benefits, indications, alternatives of procedure. Informed consent was obtained. She was taken to the operating room with an IV running. She was placed on the operating table in the dorsal supine position. Gen. anesthesia was administered and the airway was secured without any difficulty. She was placed in the low lithotomy position. She was prepared and draped in the normal sterile fashion. A time out was performed per protocol. A Seymour catheter was placed under sterile conditions. A sterile speculum was placed resulting in good visualization of the cervix. A single-tooth tenaculum was used to grasp the anterior lip cervix. The cervix was sequentially dilated with Luis dilators. A V-Care uterine manipulator was placed without any difficulty. The single-tooth tenaculum was removed, as well as the speculum. A sterile glove switch was performed. Attention was turned to the abdomen. An 8mm supraumbilical horizontal incision was made in the midline, approximately 4-5cm above the umbilicus. Through this incision, a Veress needle was inserted into the intraperitoneal cavity. Intraperitoneal placement was confirmed with ease of flow of normal saline, positive drop test, no return on aspiration, and an opening pressure of less than 10 mmHg upon initial insufflation. The abdomen was insufflated with 2 L of gas. The Veress needle was removed. Through this incision, the robotic trochar/cannula was inserted into the intraperitoneal cavity under direct visualization. No incidental bleeding nor injury was noted. Patient was placed in 30 Trendelenburg. The right and left trocars/cannulas were placed on both the right and left side through 8 mm incisions, guided by laparoscopic visualization. No incidental bleeding nor injury was noted. The robot was docked in typical fashion. The instruments were inserted, guided by laparoscopic visualization. My attention was turned to the robotic console. Using the vessel sealer device, the right and left fallopian tubes were amputated. The fallopian tubes were brought through the assist-port cannula without any difficulty. The right utero-ovarian ligament and right round ligament were sequentially clamped, coagulated and transected with the vessel sealer device. The vesicouterine samuel toneum was dissected with the vessel sealer device to create the bladder flap, thus mobilizing the lower uterine segment and cervix off of the bladder. The right uterine vasculature was sequentially clamped, coagulated and transected above the colpotomy cup. The left utero-ovarian ligament and left round ligament were sequentially clamped, coagulated and transected with the vessel sealer device. The remainder of the bladder flap was dissected using the vessel sealer device and blunt dissection. The left uterine vasculature was severely distorted by a left sided large uterine leiomyoma. A left sided retroperitoneal dissection was performed to identify both the left ureter and left uterine vasculature. The left uterine vasculature was noted to be in it's typical position near it's origin, cephalad to the ureter ("water under the bridge"). The left uterine vasculature that had been skeletonized was sequentially clamped, coagulated and transected. The outline of the entire V- care colpotomy cup was able to be delineated. Excellent blanching of the uterus was noted. A circumferential colpotomy was performed using the da Jahaira monopolar mariela, following the contour of the cup. I rescrubbed to remove the uterus/cervix through the colpotomy and vagina. The amputated cervix and uterus were brought through the colpotomy into and out of the vagina, intact as one unit with downward traction (incidentally, a subserosal leiomyoma was amputed in the process of removing the uterus through the vagina (it was amputated outside the vagina). I turned my attention back to the console. The colpotomy was closed with the V- lock barbed suture in running fashion and an imbricating second layer, thus creating the vaginal cuff. Excellent hemostasis was noted throughout the steps above. Patience was placed over the vaginal cuff to ensure hemostasis. The instruments were removed from the abdomen and the robot was un-docked. The gas was released from the abdomen and the patient was taken out of Trendelenburg. I re-scrubbed, and attention was turned to the pelvis. The Seymour catheter was removed. The cystoscope was placed transurethrally into the bladder and normal saline was instilled. No bladder injury/suture material was noted. IV methylene blue had been administered by anesthesia and bilateral UO efflux was confirmed. The fluid was drained out of the bladder through the cystoscope device, then the cystoscope was removed. The vagina was copiously irrigated. A sterile digital vaginal exam revealed no significant bleeding and an intact vaginal cuff. A sterile glove switch was performed. The da Jahaira cannulas were removed. The skin incisions were closed with 4-0 Monocryl in subcuticular fashion. Sponge, needle and instrument counts were correct per protocol. The patient tolerated the entire procedure very well. She was transferred to the PACU in good and stable condition. DO ELVA Perez JONATHAN R. DO Sep 16, 2021 14:18
[2021-09-16] MEDS: PERCOCET 5MG/325MG TAB PO PRN ×2 (14:19→19:48)
[2021-09-16] MEDS ORDERED: IBUP80TA PO (14:20)
[2021-09-16] MEDS ORDERED: PERCOCET PO (14:20)
[2021-09-16] MEDS ORDERED: COLA100C5 PO (14:20)
[2021-09-16] MEDS: LR 1,000 ML IV SCH ×2 (15:52)
[2021-09-16] MEDS: DOCUSATE SODIUM 100MG CAPSULE PO SCH (20:45)
[2021-09-17 02:00] VITALS: BP 110/65
[2021-09-17] MEDS: KETOROLAC 30 MG/ML 1ML VIAL IV SCH ×2 (02:00→09:25)
[2021-09-17 06:00] VITALS: BP 105/58
[2021-09-17] MEDS: LR 1,000 ML IV SCH (06:00)
[2021-09-17] MEDS ORDERED: INFLUENZA QUADRIVALENT PF VACCINE 0.5ML SYRINGE IM ONE (09:00)
[2021-09-17] MEDS: DOCUSATE SODIUM 100MG CAPSULE PO SCH (09:25)
[2021-09-17 10:00] VITALS: BP 108/64
[2021-09-17] MEDS ORDERED: IBUPROFEN 800 MG TAB PO SCH (17:00)
== END 2021-09-17 12:06 | disposition home or self-care (01) ==
LOC: M SDC 06:08 → M MSPAV 14:30 → M SDC 09-17 12:06
PROVIDERS: ATTEND Obstetrics & Gynecology
DX: N93.9 Abnormal uterine and vaginal bleeding, unspecified (principal); R10.2 Pelvic and perineal pain; D25.0 Submucous leiomyoma of uterus; D25.1 Intramural leiomyoma of uterus; D25.2 Subserosal leiomyoma of uterus; N80.0 Endometriosis of uterus; D64.9 Anemia, unspecified
CPT/HCPCS: 36415; 58573; 84703; 85027; 86850; 86900; 86901; 88307; 90471; 90686; 96374; 96376; J0131; J0690; J1100; J1170; J1885; J2250; J2370; J2405; J2765; J3010; Q9968; S2900

== ENCOUNTER → 2022-04-14 | Outpatient (CLI) | payer BC ==
[~2022-04-14] MED LIST changes: +COLA100C5 PO; +IBUP80TA PO; -LR 1,000 ML IV ONE; +PERCOCET PO; -ceFAZolin SOD 2 GM in IV 1 EA IV ONE
[2022-04-14 15:50] LABS: BASO # 0.1 10^3/uL (0.0-0.2); BASO % 0.9 % (0.0-1.0); EOS # 0.2 10^3/uL (0.0-0.5); EOS % 2.8 % (0.0-3.0); HEMOGLOBIN 13.7 g/dl (12.0-15.5); LYMPH # 2.6 10^3/uL (1.5-5.0); LYMPH % 32.8 % (24.0-44.0); MEAN CORPUSCULAR HEMOGLOBIN 29.6 pg (27.0-33.0); MEAN CORPUSCULAR HGB CONC 33.4 g/dl (32.0-36.5); MEAN CORPUSCULAR VOLUME 88.6 fl (80.0-96.0); MONO # 0.4 10^3/uL (0.0-0.8); MONO % 5.1 % (2.0-8.0); NEUTROPHILS # 4.6 10^3/uL (1.5-8.5); NEUTROPHILS % 57.9 % (36.0-66.0); PLATELET COUNT, AUTOMATED 338 10^3/uL (150-450); RED BLOOD COUNT 4.63 10^6/uL (4.00-5.40)
[2022-04-14 16:10] LABS: HEMOGLOBIN A1c 5.5 %
[2022-04-14 16:33] LABS: ALBUMIN 4.1 GM/DL (3.2-5.2); ALT/SGPT 20 U/L (12-78); BILIRUBIN,TOTAL 0.6 MG/DL (0.2-1.0); BLOOD UREA NITROGEN 16 MG/DL (7-18); CALCIUM LEVEL 9.4 MG/DL (8.5-10.1); CARBON DIOXIDE LEVEL 27 MEQ/L (21-32); CHLORIDE LEVEL 103 MEQ/L (98-107); CHOLESTEROL LEVEL 243 MG/DL (<200); CREATININE FOR GFR 0.63 MG/DL (0.55-1.30); GLOMERULAR FILTRATION RATE > 60.0 (>58); GLUCOSE, FASTING 69 MG/DL (70-100); HDL CHOLESTEROL 60 MG/DL (>40); LDL CHOLESTEROL 156 MG/DL (<100); NON-HDL-C 183 MG/DL; POTASSIUM SERUM 4.1 MEQ/L (3.5-5.1); SODIUM LEVEL 136 MEQ/L (136-145); TOTAL PROTEIN 7.7 GM/DL (6.4-8.2); TRIGLYCERIDES LEVEL 133 MG/DL (<150)
[2022-04-14 16:37] LABS: TOTAL 25(OH) VITAMIN D 28.2 NG/ML (30.0-100.0)
== END ==
LOC: M WUC 14:41
PROVIDERS: ATTEND Nurse Practitioner Family
DX: D50.9 Iron deficiency anemia, unspecified (principal); E55.9 Vitamin D deficiency, unspecified; E78.5 Hyperlipidemia, unspecified; Z13.1 Encounter for screening for diabetes mellitus

== ENCOUNTER → 2022-05-12 | Outpatient (CLI) | payer BC | LOC: M WHC 15:50 | PROVIDERS: ATTEND Nurse Practitioner Family | DX: Z12.31 Encounter for screening mammogram for malignant neoplasm of breast (principal) ==

== ENCOUNTER → 2023-06-05 | Outpatient (REF) | payer BC ==
[2023-06-06 10:38] LABS: APPEARANCE, URINE HAZY (CLEAR); BACTERIA, URINE AUTO NEGATIVE (NEGATIVE); BILIRUBIN, URINE AUTO NEGATIVE (NEGATIVE); BLOOD, URINE BLOOD NEGATIVE (NEGATIVE); COLOR, URINE YELLOW (YELLOW); GLUCOSE, URINE (UA) AUTO NEGATIVE (NEGATIVE); KETONE, URINE AUTO TRACE mg/dL (NEGATIVE); LEUKOCYTE ESTERASE, URINE AUTO NEGATIVE (NEGATIVE); MUCUS, URINE SMALL (NEGATIVE); NITRITE, URINE AUTO NEGATIVE (NEGATIVE); PROTEIN, URINE AUTO NEGATIVE (NEGATIVE); RBC, URINE AUTO 1 /HPF (0-3); SPECIFIC GRAVITY URINE AUTO 1.015 (1.002-1.035); SQUAMOUS EPITHELIAL CELL UR AU 8 /HPF (0-6); UROBILINOGEN, URINE AUTO 0.2 mg/dL (0.0-2.0); WBC, URINE AUTO 0 /HPF (0-3)
== END ==
LOC: M PLALAB 09:48
PROVIDERS: ATTEND Nurse Practitioner Family
DX: N39.0 Urinary tract infection, site not specified (principal)

== ENCOUNTER → 2023-06-13 | Outpatient (CLI) | payer BC ==
[2023-06-13 09:55] LABS: BASO # 0.1 10^3/uL (0.0-0.2); EOS # 0.2 10^3/uL (0.0-0.5); EOS % 2.8 % (0.0-3.0); HEMATOCRIT 41.5 % (36.0-47.0); HEMOGLOBIN 13.3 g/dl (12.0-15.5); LYMPH # 2.4 10^3/uL (1.5-5.0); LYMPH % 33.1 % (24.0-44.0); MEAN CORPUSCULAR HEMOGLOBIN 29.1 pg (27.0-33.0); MEAN CORPUSCULAR VOLUME 90.8 fl (80.0-96.0); MONO # 0.5 10^3/uL (0.0-0.8); MONO % 6.4 % (2.0-8.0); PLATELET COUNT, AUTOMATED 314 10^3/uL (150-450); RED BLOOD COUNT 4.57 10^6/uL (4.00-5.40); WHITE BLOOD COUNT 7.2 10^3/uL (4.0-10.0)
[2023-06-13 10:17] LABS: TOTAL IRON BINDING CAPACITY 342 UG/DL (250-425)
[2023-06-13 10:19] LABS: ALBUMIN 3.7 G/DL (3.2-5.2); ALKALINE PHOSPHATASE 73 U/L (46-116); ALT/SGPT 20 U/L (7.0-40); AST/SGOT 11 U/L (<34); BILIRUBIN,TOTAL 0.5 MG/DL (0.3-1.2); BLOOD UREA NITROGEN 12 MG/DL (9-23); CARBON DIOXIDE LEVEL 27 MMOL/L (20-31); CHLORIDE LEVEL 103 MMOL/L (98-107); CHOLESTEROL LEVEL 203 MG/DL (<200); CHOLESTEROL RISK RATIO 3.32 (<5); CREATININE FOR GFR 0.51 MG/DL (0.55-1.30); GLOMERULAR FILTRATION RATE > 60.0 (>51); GLUCOSE, FASTING 86 MG/DL (60-100); HDL CHOLESTEROL 61.1 MG/DL (>40); LDL CHOLESTEROL 116.3 MG/DL (<100); NON-HDL-C 141.9 MG/DL; POTASSIUM SERUM 4.4 MMOL/L (3.5-5.1); SODIUM LEVEL 138 MMOL/L (136-145); TOTAL PROTEIN 7.3 G/DL (5.7-8.2); TRIGLYCERIDES LEVEL 128 MG/DL (<150)
[2023-06-13 10:20] LABS: IRON (FE) 58 UG/DL (50-170); TOTAL 25(OH) VITAMIN D 15.1 NG/ML (20.0-100.0)
[2023-06-13 10:21] LABS: HEMOGLOBIN A1c 5.3 % (4.0-6.0)
== END ==
LOC: M WUC 08:15
PROVIDERS: ATTEND Nurse Practitioner Family
DX: R73.01 Impaired fasting glucose (principal); D50.9 Iron deficiency anemia, unspecified; E78.5 Hyperlipidemia, unspecified

== ENCOUNTER → 2023-12-07 | Outpatient (CLI) | payer BC | LOC: M WHC 15:12 | PROVIDERS: ATTEND Nurse Practitioner Family | DX: Z12.31 Encounter for screening mammogram for malignant neoplasm of breast (principal) ==

== ENCOUNTER → 2023-12-28 | Outpatient (CLI) | payer BC ==
[2023-12-28 16:48] LABS: BASO # 0.1 10^3/uL (0.0-0.2); BASO % 0.8 % (0.0-1.0); EOS # 0.2 10^3/uL (0.0-0.5); EOS % 3.2 % (0.0-3.0); HEMATOCRIT 43.3 % (36.0-47.0); HEMOGLOBIN 13.9 g/dl (12.0-15.5); LYMPH # 2.7 10^3/uL (1.5-5.0); LYMPH % 37.7 % (24.0-44.0); MEAN CORPUSCULAR HEMOGLOBIN 29.1 pg (27.0-33.0); MEAN CORPUSCULAR HGB CONC 32.1 g/dl (32.0-36.5); MEAN CORPUSCULAR VOLUME 90.6 fl (80.0-96.0); MONO # 0.4 10^3/uL (0.0-0.8); MONO % 6.2 % (2.0-8.0); NEUTROPHILS # 3.7 10^3/uL (1.5-8.5); NEUTROPHILS % 51.7 % (36.0-66.0); PLATELET COUNT, AUTOMATED 306 10^3/uL (150-450); RED BLOOD COUNT 4.78 10^6/uL (4.00-5.40); WHITE BLOOD COUNT 7.1 10^3/uL (4.0-10.0)
[2023-12-28 17:16] LABS: HEMOGLOBIN A1c 5.6 % (4.0-6.0)
[2023-12-28 17:17] LABS: ALBUMIN 3.8 G/DL (3.2-5.2); ALKALINE PHOSPHATASE 80 U/L (46-116); ALT/SGPT 38 U/L (7.0-40); AST/SGOT 25 U/L (<34); BILIRUBIN,TOTAL 0.5 MG/DL (0.3-1.2); BLOOD UREA NITROGEN 16 MG/DL (9-23); CALCIUM LEVEL 9.2 MG/DL (8.5-10.1); CARBON DIOXIDE LEVEL 29 MMOL/L (20-31); CHLORIDE LEVEL 102 MMOL/L (98-107); CHOLESTEROL LEVEL 239 MG/DL (<200); CHOLESTEROL RISK RATIO 3.87 (<5); CREATININE FOR GFR 0.56 MG/DL (0.55-1.30); FREE T4 1.17 NG/DL (0.89-1.76); GLOMERULAR FILTRATION RATE > 60.0 (>51); GLUCOSE, FASTING 71 MG/DL (60-100); HDL CHOLESTEROL 61.7 MG/DL (>40); LDL CHOLESTEROL 146.9 MG/DL (<100); NON-HDL-C 177.3 MG/DL; POTASSIUM SERUM 4.4 MMOL/L (3.5-5.1); SODIUM LEVEL 136 MMOL/L (136-145); THYROID STIMULATING HORMONE 1.803 uIU/ML (0.55-4.78); TOTAL 25(OH) VITAMIN D 20.8 NG/ML (20.0-100.0); TOTAL PROTEIN 7.6 G/DL (5.7-8.2); TRIGLYCERIDES LEVEL 152 MG/DL (<150)
== END ==
LOC: M WUC 14:35
PROVIDERS: ATTEND Nurse Practitioner Family
DX: R73.01 Impaired fasting glucose (principal); E55.9 Vitamin D deficiency, unspecified; E78.5 Hyperlipidemia, unspecified

== ENCOUNTER → 2024-07-04 | Outpatient (CLI) | payer BC | LOC: M WUC 14:48 | PROVIDERS: ATTEND Nurse Practitioner Family | DX: N95.1 Menopausal and female climacteric states (principal); R73.01 Impaired fasting glucose; E78.5 Hyperlipidemia, unspecified; Z53.9 Procedure and treatment not carried out, unspecified reason ==

== ENCOUNTER → 2024-07-04 | Outpatient (CLI) | payer BC ==
[2024-07-04 17:50] LABS: BASO # 0.1 10^3/uL (0.0-0.2); BASO % 0.8 % (0.0-1.0); EOS # 0.2 10^3/uL (0.0-0.5); HEMOGLOBIN 14.5 g/dl (12.0-15.5); MEAN CORPUSCULAR HEMOGLOBIN 29.4 pg (27.0-33.0); MEAN CORPUSCULAR HGB CONC 32.2 g/dl (32.0-36.5); MEAN CORPUSCULAR VOLUME 91.3 fl (80.0-96.0); MONO # 0.5 10^3/uL (0.0-0.8); MONO % 4.8 % (2.0-8.0); NEUTROPHILS # 6.6 10^3/uL (1.5-8.5); NEUTROPHILS % 70.9 % (36.0-66.0); PLATELET COUNT, AUTOMATED 345 10^3/uL (150-450); RED BLOOD COUNT 4.93 10^6/uL (4.00-5.40); WHITE BLOOD COUNT 9.3 10^3/uL (4.0-10.0)
[2024-07-04 18:07] LABS: HEMOGLOBIN A1c 5.4 % (4.0-6.0)
[2024-07-04 18:21] LABS: ALBUMIN 4.1 G/DL (3.2-5.2); ALKALINE PHOSPHATASE 95 U/L (46-116); ALT/SGPT 40 U/L (7.0-40); AST/SGOT 20 U/L (<34); BILIRUBIN,TOTAL 0.5 MG/DL (0.3-1.2); BLOOD UREA NITROGEN 12 MG/DL (9-23); CALCIUM LEVEL 9.3 MG/DL (8.5-10.1); CARBON DIOXIDE LEVEL 28 MMOL/L (20-31); CHLORIDE LEVEL 103 MMOL/L (98-107); CHOLESTEROL LEVEL 271 MG/DL (<200); CHOLESTEROL RISK RATIO 4.54 (<5); CREATININE FOR GFR 0.55 MG/DL (0.55-1.30); GLOMERULAR FILTRATION RATE > 60.0 (>51); GLUCOSE, FASTING 75 MG/DL (60-100); HDL CHOLESTEROL 59.6 MG/DL (>40); LDL CHOLESTEROL 174.8 MG/DL (<100); NON-HDL-C 211.4 MG/DL; POTASSIUM SERUM 4.2 MMOL/L (3.5-5.1); SODIUM LEVEL 137 MMOL/L (136-145); TOTAL PROTEIN 8.2 G/DL (5.7-8.2); TRIGLYCERIDES LEVEL 183 MG/DL (<150)
[2024-07-04 18:22] LABS: THYROID STIMULATING HORMONE 1.515 uIU/ML (0.55-4.78); TOTAL 25(OH) VITAMIN D 16.8 NG/ML (20.0-100.0)
== END ==
LOC: M WUC 14:50
PROVIDERS: ATTEND Nurse Practitioner Family
DX: N95.1 Menopausal and female climacteric states (principal); R73.01 Impaired fasting glucose; E78.5 Hyperlipidemia, unspecified; E55.9 Vitamin D deficiency, unspecified; K21.9 Gastro-esophageal reflux disease without esophagitis

== ENCOUNTER → 2024-12-09 | Outpatient (CLI) | payer BC ==
[~2024-12-09] MED LIST changes: -ERGO500029; +ERGO500029 PO
== END ==
LOC: M WHC 16:23
PROVIDERS: ATTEND Nurse Practitioner Family
DX: Z12.31 Encounter for screening mammogram for malignant neoplasm of breast (principal); R92.323 Mammographic fibroglandular density, bilateral breasts

== ENCOUNTER → 2025-08-24 | Outpatient (CLI) | payer BC ==
[2025-08-24 13:25] LABS: BASO # 0.1 10^3/uL (0.0-0.2); BASO % 1.1 % (0.0-1.0); EOS # 0.2 10^3/uL (0.0-0.5); EOS % 3.3 % (0.0-3.0); LYMPH # 3.0 10^3/uL (1.5-5.0); LYMPH % 40.6 % (24.0-44.0); MONO # 0.4 10^3/uL (0.0-0.8); MONO % 5.6 % (2.0-8.0); NEUTROPHILS # 3.6 10^3/uL (1.5-8.5); NEUTROPHILS % 49.0 % (36.0-66.0); PLATELET COUNT, AUTOMATED 319 10^3/uL (150-450)
[2025-08-24 13:34] LABS: FREE T4 1.16 NG/DL (0.89-1.76)
[2025-08-24 13:39] LABS: ALT/SGPT 40 U/L (7.0-40); AST/SGOT 27 U/L (<34); CALCIUM LEVEL 9.2 MG/DL (8.5-10.1); CARBON DIOXIDE LEVEL 28 MMOL/L (20-31); CHLORIDE LEVEL 104 MMOL/L (98-107); CHOLESTEROL LEVEL 236 MG/DL (<200); CHOLESTEROL RISK RATIO 4.28 (<5); CREATININE FOR GFR 0.61 MG/DL (0.55-1.30); GLOMERULAR FILTRATION RATE > 90.0 (>51); LDL CHOLESTEROL 144.7 MG/DL (<100); NON-HDL-C 180.9 MG/DL; POTASSIUM SERUM 4.5 MMOL/L (3.5-5.1); SODIUM LEVEL 140 MMOL/L (136-145); TRIGLYCERIDES LEVEL 181 MG/DL (<150)
[2025-08-24 14:00] LABS: ESTIMATED AVERAGE GLUCOSE 126.0 MG/DL (60-110)
== END ==
LOC: M WUC 08:27
PROVIDERS: ATTEND Nurse Practitioner Family
DX: E55.9 Vitamin D deficiency, unspecified (principal); R53.83 Other fatigue; E78.5 Hyperlipidemia, unspecified; R73.01 Impaired fasting glucose